=== PATIENT | male | born 1990 | race Caucasian/White ===

== ENCOUNTER → 2020-06-28 11:28 | Outpatient (BNVA) | payer OTHER, SELFPAY | PROVIDERS: Family Provider Emergency Medicine Emergency Medical Services; Visit Provider Nurse Practitioner Family | DX: Z11.59 Encounter for screening for other viral diseases (principal) | CPT/HCPCS: 87635 ==

== ENCOUNTER 2020-07-05 11:26 | Emergency (ER) | payer OTHER, SELFPAY ==
[2020-07-05 11:34] VITALS: BP 128/80; PULSE 82; RESP 14; TEMP 36.8; O2SAT 96; BMI 24.7
--- NOTE | 2020-07-05 11:54 | W.ED.WOUNDLC ---
HPI - Wound/Laceration General: Chief Complaint: Wound/Laceration Stated Complaint: HEAD LACERATION Time Seen by Provider: 07/05/20 11:41 Source: patient Mode of arrival: ambulatory Limitations: no limitations History of Present Illness: HPI narrative: Patient is a 30-year-old male who hit his head against the hinge of a door about 2 hours prior to arrival. He denies loss of consciousness. He is not on any anticoagulation. He has had a few episodes of dizziness since he hit his head. He has a laceration on the crown of his head and he is here to be evaluated. No other injuries Onset (ago): hour(s) (2) Location: scalp Place: work Patient tetanus UTD: No Associated symptoms: Reports other (dizziness); Denies chills, fever(s), foreign body sensation, inability to move, nausea, numbness, pain, syncope or vomiting Review of Systems General: Reports: 10 or more systems reviewed and unremarkable except in HPI and below Const: Denies: fever(s) or chills Eyes: Denies: change in vision or blurry vision ENMT: Denies: throat pain, enlarged tonsils, odynophagia, hoarseness, mouth pain or swelling of lips/tongue Card: Denies: syncope Resp: Denies: dyspnea, productive cough or non-productive cough GI: Denies: nausea or vomiting : Denies: flank pain, dysuria, urinary frequency, urinary urgency or urinary hesitancy Musc: Denies: neck pain, back pain or extremity swelling Skin/Breast: Reports: other (Laceration); Denies: rash, pruritus or erythema Neuro: Denies: headache(s), numbness in extremities or weakness in extremities Endo: Denies: polyuria, polydipsia or tired all the time [facility] ED PFSH: Social History Smoking and tobacco status: current every day smoker Alcohol intake: never Physical Exam Const: COMMON NORMALS: no acute distress, average body habitus, patient oriented x3, no limitations, healthy appearing, alert and well nourished HENMT: COMMON NORMALS: normocephalic and moist oral mucous membranes HEAD & SCALP: normocephalic and laceration (2 cm laceration on the top of his head. No bleeding. No skull depressions felt.) Eye: COMMON NORMALS: Equal, round and reactive pupils present, EOMs intact bilaterally, conjunctivae normal and no scleral icterus CONJUNCTIVA: Yes conjunctivae normal PUPIL: Yes Equal, round and reactive pupils present Neck/C-Spine: COMMON NORMALS: full ROM, supple, no meningeal signs, no JVD and No carotid bruits Resp: COMMON NORMALS: normal respiratory effort, No retractions, No use of accessory muscles, clear to auscultation bilaterally and percussion normal AUSCULTATION: clear to auscultation bilaterally PERCUSSION: percussion normal Cardio: COMMON NORMALS: no JVD, regular rate, regular rhythm, S1 normal heart sound present, S2 normal heart sound present, No gallops present (Cardio), No clicks present (Cardio), No murmurs present (Cardio), No rub (Cardio) and Peripheral pulses 2+ throughout RATE: regular rate RHYTHM: regular rhythm HEART SOUNDS: S1 normal heart sound present and S2 normal heart sound present PERIPHERAL PULSES: Peripheral pulses 2+ throughout GI: COMMON NORMALS: Normal to inspection, nondistended, normoactive bowel sounds present, Soft to palpation, non-tender, No hepatosplenomegaly present, no masses and no bruits PALPATION: Yes Soft to palpation and Yes No hepatosplenomegaly present Extremity: COMMON NORMALS: normal to inspection, full ROM, capillary refill normal, no calf tenderness and no pedal edema Neuro: COMMON NORMALS: patient oriented x3 SENSORIUM/ORIENTATION: Yes alert MENINGEAL SIGNS: Yes no meningeal signs Skin: COMMON NORMALS: no rashes or lesions noted, no wounds, turgor normal, no jaundice, no petechiae and no mottling GENERAL SKIN EXAM: no rashes or lesions noted and turgor normal Procedures Laceration Laceration 1: Site: scalp Size (cm): 2 Description: linear and clean Depth: simple, single layer Local Anesthetic: lidocaine 1% and with epi Amount of anesthesia used (mL): 3 Pre-repair: wound explored Skin layer closed with: other (sami) Number of sutures: 3 (3 sami) Course Reevaluation(s): Reevaluation #1: Discussed his CT scan findings with him. No acute findings, however he has a Chiari I malformation. Advised that he should get an MRI on an outpatient basis. Also discussed wound care with him and he voiced understanding and is in agreement with the plan. Time: 13:06 Vital Signs: Vital signs: Vital Signs Temperature 98.2 F 07/05/20 11:34 Pulse Rate 82 07/05/20 11:34 Respiratory Rate 14 07/05/20 11:34 Blood Pressure 128/80 07/05/20 11:34 Pulse Oximetry 96 07/05/20 11:34 MDM - Wound/Laceration MDM Narrative: Medical decision making narrative: 30-year-old male with a mild closed head injury. He also sustained a scalp laceration was successfully closed using sami. He is discharged home with a few days off of work as I believe he has a concussion. Wound care instructions given to the patient Medical Records: Attestation: I reviewed the patient's medical records. Imaging Data^: CT Head: Attestation: I personally reviewed and interpreted this imaging study as follows: Radiologist's impression: [place] [address] CT Scan Report Signed Patient: Jose Lezama #: [id number] : 1990Acct#:[id number] Age/Sex: Date: [birth year]20 Loc: ERRoom/Bed: Attending Dr: Ordering Provider/Ordering MD: Abena Palmer MD, [facility] Date of Service: 07/05/20 Procedure(s): CT head wo con* [id number] Accession Number(s): [id number] Report Number: [id number] WS: [id number] CT HEAD TECHNIQUE: Noncontrast CT of the head obtained from the skullbase to the vertex. CLINICAL INFORMATION: head injury, dizziness COMPARISON: None. DLP: 854.[address] scans at [facility] use at least one of these dose optimization techniques: automated exposure control; mA and/or kV adjustment per patient size (includes targeted exams where dose is matched to clinical indication); or iterative reconstruction. FINDINGS: No evidence of intracranial hemorrhage or mass effect. Ventricular system and basal cisterns are patent. No extra-axial fluid collections. No evidence of mass or mass effect. Normal walton-white differentiation. Scalp laceration overlying the right frontal vertex. No acute fractures. Small retention cyst in the posterior ethmoid air cells. Mastoid air cells are well aerated. Paranasal sinuses are otherwise well aerated where visualized. Chiari I malformation with crowding at the foramen magnum. Cerebellar tonsils approximately 7-8 mm below the foramen magnum. No hydrocephalus. CT/CT head wo con* [id number] IMPRESSION: 1. No evidence of intracranial hemorrhage or mass effect. 2. Chiari 1 malformation with cerebellar tonsils 7-8 mm below the foramen magnum. Mild crowding at the foramen magnum. No hydrocephalus. This can be followed up with MRI on an elective basis. 3. Scalp laceration overlying the right vertex. No fractures. 4. No other significant findings. Dictated By:Juancho Coffey MD Signed By:Juancho Coffey MDSigned Date/Time:07/05/201250 DD/ 1246 Discharge Plan Discharge Patient Disposition: Home Clinical Impression: Chiari malformation type I Mild closed head injury Qualifiers: Encounter type: initial encounter Qualified Code(s): S09.90XA - Unspecified injury of head, initial encounter Laceration of scalp Qualifiers: Encounter type: initial encounter Qualified Code(s): S01.01XA - Laceration without foreign body of scalp, initial encounter Concussion Qualifiers: Encounter type: initial encounter Loss of consciousness presence/duration: without LOC Qualified Code(s): S06.0X0A - Concussion without loss of consciousness, initial encounter Condition: Stable Discharge Orders: Discharge Order (Routine); Ordered 07/05/20 Ordered By: Abena Palmer Discharge Diet: Usual diet Discharge Activity: Increase activity as tolerated Patient Instructions: Concussion/Head Injury - Adult, Scalp Laceration, Concussion (ED), Minor Head Injury (ED), Chiari Malformation (GEN) Activity Restrictions/Additional Instructions: Return for any new or worsening symptoms. No strenuous activities for the next week. Follow-up with your primary care provider within 3 days. Have the sami removed in 5 to 7 days. Keep the wound clean and dry, he can shower but do not soak the wound. Apply an antibiotic ointment to the wound daily. Need to get an outpatient MRI of your brain to evaluate the Chiari malformation that was found on CT. 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
[2020-07-05] MEDS: tetanus-dipt-pertussis 0.5 mL SDV IM (12:00)
--- NOTE | 2020-07-05 12:11 | CT_ITS ---
WS: [id number] CT HEAD TECHNIQUE: Noncontrast CT of the head obtained from the skullbase to the vertex. CLINICAL INFORMATION: head injury, dizziness COMPARISON: None. DLP: 854.[address] scans at [facility] use at least one of these dose optimization techniques: automat ed exposure control; mA and/or kV adjustment per patient size (includes targeted exams where dose is matched to clinical indication); or iterative reconstruction. FINDINGS: No evidence of intracranial hemorrhage or mass effect. Ventricular system and basal cisterns are connors nt. No extra-axial fluid collections. No evidence of mass or mass effect. Normal walton-white different iation. Scalp laceration overlying the right frontal vertex. No acute fractures. Small retention cyst in the posterior ethmoid air cells. Mastoid air cells are well aerated. Paranasa l sinuses are otherwise well aerated where visualized. Chiari I malformation with crowding at the foramen magnum. Cerebellar tonsils approximately 7-8 mm be low the foramen magnum. No hydrocephalus. CT/CT head wo con* [id number] IMPRESSION: 1. No evidence of intracranial hemorrhage or mass effect. 2. Chiari 1 malformation with cerebellar tonsils 7-8 mm below the foramen magn um. Mild crowding at the foramen magnum. No hydrocephalus. This can be followed up with MRI on an elective basis. 3. Scalp laceration overlying the right vertex. No fractures. 4. No other significant findings.
[2020-07-05 13:20] VITALS: BP 116/55; PULSE 68; RESP 14; O2SAT 100
== END 2020-07-05 13:22 | disposition home or self-care (01) ==
PROVIDERS: Emergency Provider Family Medicine
DX: S01.01XA Laceration without foreign body of scalp, initial encounter (principal); S06.0X0A Concussion without loss of consciousness, initial encounter; G93.5 Compression of brain; F17.210 Nicotine dependence, cigarettes, uncomplicated; W22.09XA Striking against other stationary object, initial encounter; Z23 Encounter for immunization
CPT/HCPCS: 12001; 12345; 70450; 90471; 90715; 99281; 99282

== ENCOUNTER → 2020-07-06 12:48 | Outpatient (BNVA) | payer OTHER, SELFPAY | PROVIDERS: Visit Provider Emergency Medicine | DX: Z11.59 Encounter for screening for other viral diseases (principal) | CPT/HCPCS: 87635 ==

== ENCOUNTER → 2020-07-24 13:20 | Outpatient (BNVA) | payer OTHER, SELFPAY | PROVIDERS: Visit Provider Nurse Practitioner Family | DX: Z11.59 Encounter for screening for other viral diseases (principal); J06.9 Acute upper respiratory infection, unspecified | CPT/HCPCS: 87635 ==

== ENCOUNTER 2020-07-26 09:09 | Outpatient (CLI) | payer OTHER, SELFPAY ==
--- NOTE | 2020-07-26 09:21 | MR_ITS ---
WS: [id number] MRI HEAD WITH CONTRAST TECHNIQUE: Sagittal T1, T2 axial, T2 axial FLAIR, axial susceptibility weighted imaging, axial diffus ion weighted images, and coronal T2 images were obtained. Pre and post-T1 axial and post T1 coronal i mages. ADC and FSPGR images. CLINICAL INFORMATION: CHIARI 1 MALFORMATION COMPARISON: CT July 05, 2020 FINDINGS: No evidence of restricted diffusion to suggest acute ischemia. Ventricular system and basal cisterns are patent. 5 mm focus of hemosiderin in the left frontal lobe laterally likely represents a small ca vernoma. No evidence of recent hemorrhage. No suspicious white matter signal abnormalities. Normal va scular flow voids at the skull base. No extra-axial fluid collections. Mucosal thickening ethmoid air cells. Retention cyst right maxillary sinus. Mastoid air cells are well aerated. Chiari I malformation with cerebellar tonsils 9 mm below the foramen magnum. Normal fourth ventricle. Mild crowding at the foramen magnum. Brain stem signal is normal. Normal fourth ventricle. No hydroc ephalus. No abnormal gadolinium enhancement. Normal optic chiasm and pituitary infundibulum. Normal cavernous sinuses and Meckel's cave. Normal dural venous sinuses. Enhancing bony lesion in the right lateral or bital rim unchanged since the CT measuring 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 T his has a nonaggressive appearance and likely incidental. MR/MR head wo/w con [id number] IMPRESSION: 1. Chiari 1 malformation with cerebellar tonsils 9 mm below the foramen magnum . Normal fourth ventricle. Mild crowding of the foramen magnum. Normal brain st em signal. Normal fourth ventricle. 2. No hydrocephalus. 3. No restricted diffusion to suggest acute ischemia. 4. 5 mm focus of hemosiderin in the left frontal lobe laterally likely represe nts a small cavernoma. No evidence of recent hemorrhage. 5. No suspicious white matter signal abnormalities. 6. No abnormal gadolinium enhancement. 7. Retention cyst right maxillary sinus.
== END 2020-07-26 09:10 | disposition home or self-care (01) ==
LOC: RADSHAW 09:10
PROVIDERS: PCP Emergency Medicine Emergency Medical Services; Visit Provider Emergency Medicine Emergency Medical Services
DX: G93.5 Compression of brain (principal); M27.40 Unspecified cyst of jaw
CPT/HCPCS: 70553; A9579

== ENCOUNTER 2020-10-19 12:35 | Emergency (ER) | payer OTHER, SELFPAY ==
[2020-10-19 12:42] VITALS: BP 133/93; PULSE 94; RESP 18; TEMP 36.7; O2SAT 97; BMI 25.8
--- NOTE | 2020-10-19 12:50 | W.ED.EXTPRO ---
HPI - Extremity Problem General: Chief complaint: Extremity Problem,Nontraumatic Stated complaint: knee to ankle and wrist to hand of left side cold Time Seen by Provider: 10/19/20 12:48 History of Present Illness: HPI Narrative: Patient is a 30-year-old male comes to the ED with left leg pain and left forearm pain. Left arm pain occurs when patient puts his wrist and arm in certain positions. He says the pain starts at the wrist and then radiates up into the elbow. The left leg pain starts in the lower back and then moves down the hip and into the leg. Denies any bladder or bowel incontinence, pelvic anesthesia or weakness to lower extremities. Associated symptoms: Deny chest pain, fever(s) or rash Review of Systems Const: Denies: fever(s), chills or fatigue Eyes: Denies: change in vision or eye discomfort ENMT: Denies: throat pain, odynophagia, nasal discharge or nasal congestion Card: Denies: chest pain, palpitations, edema, swelling of feet/ankles, dyspnea on exertion or orthopnea Resp: Denies: dyspnea, productive cough or non-productive cough GI: Denies: abdominal pain, nausea, vomiting, diarrhea, constipation or hematochezia : Denies: flank pain, difficulty urinating, dysuria or hematuria Musc: Reports: back pain (Lower back) and extremity pain (Left forearm pain, left leg pain); Denies: neck pain or extremity swelling Skin/Breast: Denies: rash or new lesions Neuro: Denies: headache(s), numbness in extremities or weakness in extremities PFS ED PFSH: Social History Smoking and tobacco status: former smoker Quit status (tobacco): has quit using tobacco Alcohol intake: current Alcohol intake frequency: holidays/special occasions only History of recent travel: No Current gender identity: Male Physical Exam Const: COMMON NORMALS: no acute distress, patient oriented x3 and alert GENERAL APPEARANCE: cooperative and comfortable HENMT: COMMON NORMALS: normocephalic HEAD & SCALP: normocephalic MOUTH: Normal oral and palatal mucosa present THROAT: posterior oropharynx normal and uvula midline Eye: COMMON NORMALS: Equal, round and reactive pupils present PUPIL: Yes Equal, round and reactive pupils present Neck/C-Spine: COMMON NORMALS: supple GENERAL: Yes normal visual inspection Resp: COMMON NORMALS: normal respiratory effort, No retractions, No use of accessory muscles and clear to auscultation bilaterally AUSCULTATION: clear to auscultation bilaterally Cardio: COMMON NORMALS: regular rate, regular rhythm, S1 normal heart sound present, S2 normal heart sound present, No gallops present (Cardio), No clicks present (Cardio), No murmurs present (Cardio) and Peripheral pulses 2+ throughout RATE: regular rate RHYTHM: regular rhythm HEART SOUNDS: S1 normal heart sound present and S2 normal heart sound present PERIPHERAL PULSES: Peripheral pulses 2+ throughout GI: COMMON NORMALS: Normal to inspection, nondistended, normoactive bowel sounds present, Soft to palpation, non-tender and no masses PALPATION: Yes Soft to palpation : COMMON NORMALS: Yes no CVA tenderness BLADDER/KIDNEY EXAM: Yes no CVA tenderness Back/Pelvis: COMMON NORMALS: no CVA tenderness LUMBAR SPINE/LOWER BACK: Yes paraspinal muscle tenderness Lumbar paraspinal muscle tenderness: left and Yes other soft tissue findings Other lumbar soft tissue findings laterality: left Left other lumbar soft tissue findings details: tenderness (Left lower back lumbosacral fascia region.) Extremity: COMMON NORMALS: normal to inspection LEFT UPPER EXTREMITY: Yes wrist Left wrist: Yes inspection (Normal, no edema, ecchymosis or erythema seen.) and Yes special tests Left wrist special tests: Phalen's test: Positive Neuro: COMMON NORMALS: patient oriented x3 and moves all extremities SENSORIUM/ORIENTATION: Yes alert Skin: GENERAL SKIN EXAM: dry skin Course Vital Signs: Vital signs: Vital Signs Temperature 98.1 F 10/19/20 12:42 Pulse Rate 94 10/19/20 12:42 Respiratory Rate 18 10/19/20 12:42 Blood Pressure 133/93 10/19/20 12:42 Pulse Oximetry 97 10/19/20 12:42 MDM - Extremity (Nontraumatic) MDM Narrative: Medical decision making narrative: Patient is a 30-year-old male comes to the ED with left forearm pain and lower back pain that radiates down until left leg. Left forearm pain starts at the wrist and moves to the elbow and occurs when his hand and wrist in certain positions. Patient positive in left wrist for Phalen's test. Patient had left lower back paraspinal muscle tenderness. No cauda equina symptoms present. Patient was given a dose of Toradol and Solu-Medrol while here in the ED. He was diagnosed with lumbar radicular pain and carpal tunnel syndrome left wrist. He was discharged with a prescription for Medrol Dosepak. He was told to continue taking his muscle relaxer and Aleve to help with pain. Return to ED precautions given. Follow-up with PCP in 7 to 10 days for reevaluation. Patient understood and agree with plan. Discharge Plan Discharge Patient Disposition: Home Clinical Impression: Lumbar radicular pain, Carpal tunnel syndrome of left wrist Condition: Stable Prescriptions: New Medrol (George) 4 mg tablets,dose pack See Rx Instructions .ROUTE .COMPLEX Qty: 21 RF: 0 No Action cyclobenzaprine 10 mg tablet 10 mg PO TID RF: 0 Discharge Orders: Discharge ED (Routine); Ordered 10/19/20 Ordered By: Edgardo Rush Referrals: Stef Sandhu, [Primary Care Provider] - Discharge Diet: Regular Discharge Activity: Increase activity as tolerated Patient Instructions: Carpal Tunnel Syndrome Exercises (GEN), Carpal Tunnel Syndrome (ED), Lumbar Radiculopathy (ED) Activity Restrictions/Additional Instructions: Follow-up with medical provider as directed in 7 to 10 days for reevaluation. I or apply heat on lower back to help with symptoms. Do daily stretches of lower back. Take medications as prescribed. Attached your discharge paperwork is some carpal tunnel exercises as well to help with symptoms. Return to the ER or your medical provider if condition worsens. Please read and understand discharge instructions. If any questions, please ask. Coding Level of Care Code ED Procurement Professional [employer] for [employer]te Fwd Exam Comprehensive
[2020-10-19] MEDS: ketorolac 60 mg/2 mL INJ IM (13:22)
== END 2020-10-19 13:25 | disposition home or self-care (01) ==
PROVIDERS: Emergency Provider Physician Assistant; PCP Emergency Medicine Emergency Medical Services
DX: M54.16 Radiculopathy, lumbar region (principal); G56.02 Carpal tunnel syndrome, left upper limb; Z87.891 Personal history of nicotine dependence
CPT/HCPCS: 12345; 96372; 99281; 99283; J1885; J2930

== ENCOUNTER 2020-11-19 07:36 | Outpatient (CLI) | payer OTHER, SELFPAY ==
--- NOTE | 2020-11-19 07:40 | MR_ITS ---
WS: [id number] MRI LUMBAR SPINE NONCONTRAST TECHNIQUE: Sagittal T1, T2 and STIR imaging. Axial T1 and T2 imaging. CLINICAL INFORMATION: LUMBAR RADICULOPATHY COMPARISON: MRI 2018 FINDINGS: Mild lumbar curve. No acute compression. Disc bulging worse L4-5 is similar to previous. L1-L2: Normal. L2-L3: Normal. L3-L4: Mild annular bulging L3-4. Slight narrowing of the left subarticular recess. Mild facet arthro radha. Spinal canal and foramen are patent. L4-L5: Shallow left subarticular disc protrusion impinges the traversing left L5 nerve root in the snyder barticular recess. Mild central canal stenosis. This is similar to 2018. Mild left foraminal narrowin g. Mild facet arthropathy. L5-S1: Shallow central and left pericentral disc protrusion with contact of the left S1 nerve root. T his is similar to 2018. Correlation for left S1 nerve root symptoms. Tiny annular fissure at this level. Mild left foraminal narrowing. Mild facet arthropathy. Chiari I malformation with cerebellar tonsils approximately 7 mm below the foramen magnum. MR/MR lumbar spine wo con* [id number] IMPRESSION: 1. Mild lumbar curve. No acute compression. 2. Left subarticular disc protrusion L4-5 impinges the traversing left L5 nerv e root in the left subarticular recess. Mild central canal stenosis. This appea rs unchanged from previous. Mild left L4-5 foraminal narrowing. 3. Shallow central and left pericentral disc protrusion L5-S1 impinges the lef t S1 nerve root in the subarticular recess. This is unchanged from previous. Mi ld left foraminal narrowing. 4. Stable Chiari I malformation with tonsils 7 mm below the foramen magnum.
== END 2020-11-19 07:37 | disposition home or self-care (01) ==
LOC: RADSHAW 07:37
PROVIDERS: PCP Emergency Medicine Emergency Medical Services; Visit Provider Emergency Medicine Emergency Medical Services
DX: M54.16 Radiculopathy, lumbar region (principal); M51.26 Other intervertebral disc displacement, lumbar region; M51.27 Other intervertebral disc displacement, lumbosacral region; G93.5 Compression of brain
CPT/HCPCS: 72148

== ENCOUNTER → 2020-12-04 09:42 | Outpatient (BNVA) | payer OTHER, SELFPAY | PROVIDERS: PCP Emergency Medicine Emergency Medical Services; Visit Provider Specialist | DX: M54.5 Low back pain (principal); R51.9 Headache, unspecified; G93.5 Compression of brain | CPT/HCPCS: 99204 ==

== ENCOUNTER → 2020-12-18 09:16 | Outpatient (BNVA) | payer OTHER, SELFPAY | PROVIDERS: PCP Emergency Medicine Emergency Medical Services; Visit Provider Orthopaedic Surgery | DX: M54.5 Low back pain (principal) | CPT/HCPCS: 72110 ==

== ENCOUNTER → 2021-01-16 08:42 | Outpatient (BNVA) | payer OTHER, SELFPAY | PROVIDERS: PCP Emergency Medicine Emergency Medical Services; Visit Provider Orthopaedic Surgery | DX: Z01.818 Encounter for other preprocedural examination (principal); Z11.52 Encounter for screening for COVID-19 | CPT/HCPCS: 87635 ==

== ENCOUNTER 2021-01-21 09:02 | Day surgery (SDC) | payer OTHER, SELFPAY ==
[2021-01-18 10:24] VITALS: BMI 25.9
--- NOTE | 2021-01-18 10:46 | ANES.PREANE2 ---
Pre-Anesthetic Assessment Pre-Anesthetic Assessment: Height/Weight: Height 1.93 m Weight 96.615 kg Preop Diagnosis: lumbar stenosis Proposed Procedure: Operation Date: 01/21/21 12:30 Proposed Procedures p Lumbar Spine Decompression [id number] M448.062(Not Applicable) - Carlos A Lopez, DO Was Beta Juma taken within 24 hours: N/A Was Clonidine taken within 24 hours: N/A Social: Social History: No alcohol and No tobacco Exam: Pre-Anes Outpt Exam: alert, oriented x 3, clear to auscultation bilaterally and regular rate & rhythm Airway: Submandibular: WNL Cervical ROM: WNL MP: 2 Dentition: Full Musc/skel: Musc/skel: Lower Back Pain Anesthetic Plan: ASA status: 2 Anesthesia: General Risk of > 500 ml blood loss (7ml/kg in children): No PFSH Anesthesia PFSH: Social History Smoking and tobacco status: former smoker Quit status (tobacco): has quit using tobacco Alcohol intake: current Alcohol intake frequency: holidays/special occasions only History of recent travel: No Current gender identity: Male Data Anesthesia Cardiac Studies: No Data to Display
[2021-01-21] VITALS (9 sets, daily range): BP systolic 117–135; BP diastolic 66–89; PULSE 64–90; RESP 12–18; TEMP 36.2–36.7; O2SAT 98–100
--- NOTE | 2021-01-21 | SCC_ITS ---
Procedure Done: 1. Left L4/5 laminectomy, partial facetectomy and diskectomy 2. Left L5/S1 laminectomy partial facetectomy 22 seconds of fluoroscopic guidance, for a cumulative dose of 4.69 mGy, was provided to Dr. Lopez by the radiology department. C-arm images of the lumbar spine were saved for the patient's permanent record. [facility]
[2021-01-21] MEDS: sodium chloride 0.9% 1,000 ML 30 ML IV (09:32)
--- NOTE | 2021-01-21 10:16 | P.ANESUD_ITS ---
Pre-Anesthetic Update Pre-Anesthetic Assessment: Date of Surgery/Procedure: 01/21/21 Preop Taina gnosis: lumbar stenosis Proposed Procedure: Operation Date: 01/21/21 10:35 Proposed Procedures p Lumbar Spine Decompression [id number] M448.062(Not Applicable) - Carlos A Lopez, DO Any changes to Pre-Anesthetic Assessment?: No Last Intake: Intake Last Liquid Date 01/20/21 Last Solid Date 01/20/21 Vitals: Temperature 98.1 F 01/21/21 09:25 Pulse Rate 90 01/21/21 09:25 Respiratory Rate 18 01/21/21 09:25 Blood Pressure 132/82 01/21/21 09:25 Blood Pressure Mica n 98 01/21/21 09:25 Pulse Oximetry 98 01/21/21 09:25 Oxygen Delivery Me thod 01/21/21 09:26 Exam: Pre-Anes Outpt Exam: alert, oriented x 3, clear to auscultation bilaterally and regular rate & rhythm Cardiac Studies: No Data to Display
--- NOTE | 2021-01-21 14:24 | P.HP_ITS ---
Providers/Chief Complaint Primary Care Provider: Stef Sandhu DO Chief Complaint: decompression History of Present Illness Jose Lezama is a 30 year old male his is a new 30 year old male patient here today for evaluation of his lower back pain. Onset: patient states that he was in the [place] and that he had several injuries such as falling off of a mountain, falling out of a humvee. Duration: years Characteristics: dull poking, squeezing Severity: mild Location: lower back Radiating symptoms: into the left leg Aggravating factors: none Alleviating factors: stretching at times Neuro deficits: patient reports numbness, tingling, weakness, Patient denies incontinence of bowel/bladder, saddle anesthesia. Prior tx: back ablasion, physical therapy, injections. Injections helped for a few hours. Associated symptoms: Denies abdominal pain, chills, fever(s), nausea or vomiting Review of Systems Narrative: Const: Denies: fever(s) or chills Card: Denies: chest pain or dyspnea on exertion Resp: Denies: dyspnea, productive cough or wheezing GI: Denies: abdominal pain, nausea or vomiting Musc: Reports: neck pain, joint pain, joint swelling and limited range of motion Skin/Breast: Denies: changes in skin color or dry skin Neuro: Denies: numbness in extremities or weakness in extremities Psych: Denies: anxiety Jon/Lymph: Denies: easy bruising or easy bleeding Medications/Allergies Home Medications Medication Instructions Recorded Confirmed Last Taken Type cyclobenzaprine 10 mg tablet 10 mg PO TID 07/06/20 01/21/21 01/20/21 History naproxen sodium 220 mg PO BID PRN 01/18/21 01/21/21 01/20/21 History Allergies Allergy/AdvReac Type Severity Reaction Status Date / Time No Known Allergies Allergy Verified 01/21/21 09:19 PFSH Acute PFSH: Social History Smoking and tobacco status: former smoker Quit status (tobacco): has quit using tobacco Alcohol intake: current Alcohol intake frequency: holidays/special occasions only History of recent travel: No Current gender identity: Male Vitals/I&O/Wt Last Vital Signs Temp 98.1 F 01/21/21 09:25 Pulse 90 01/21/21 09:25 Resp 18 01/21/21 09:25 BP 132/82 01/21/21 09:25 Pulse Ox 98 01/21/21 09:25 Physical Exam Narrative: EXAM NARRATIVE: CONSTITUTIONAL: The patient is a normal appearing [] in no apparent distress. GENERAL: Patient in no acute distress. CARDIAC: Regular rate and rhythm. CHEST: Normal inspiratory effort, normal respiratory rate. ABDOMEN: Soft and nontender. SKIN: Clear, warm and intact. NEURO?PSYCH: The patient is alert and oriented to person, place and time. Sensorv /SILT Motor StrengthShoulder abduction C5 5/5Wrist extension C6 5/5Elbow extension C7 5/5Hand Condominium Association Manager C8 5/5Finger abduction T15/5 Radial/ Ulnar/ Median n intact LowerSensory (SILT)Motor StrengthHin flexion L2/3Ant/inner thigh 5/5Hip adduction L2/3 5/5Knee extension L4 Lat thigh, 5/5Toe dorsiflexion L5 5/5Ankle dorsiflexion L5/ S38Mprymod flexion S1 5/5 DTRBleeps 2+Triceps 2+Brachioradialis 2+Patellar 2+Achilles 2+ MUSCULOSKELETAL: [] UPPEREXTREMITIES: The patient had full active ROM in fingers, wrist, elbow, and shoulder. The patient demonstrated ability to fully flex/extend/abduct/adduct fingers, make ok sign, cross 2nd/3rd digits, extend 1st digit fully.. Radial pulse 2+, CR<2 seconds. LOWER EXTREMITIES: Pt has full, active ROM of toes, ankle, knee, and hip. Dorsalis pedis/posterior tibialis pulses 2+, CR<2 seconds. SPINE: Skin warm, dry, intact. A&P Assessment and plan (1) Lumbar stenosis with neurogenic claudication: MIS lumbar decompression Status: Acute Attestations Medical Necessity Statement*: failed conservative tx Coding Level of Care Code Acute Air Antisubmarine Officer for [facility] Diagnoses Lumbar stenosis with neurogenic claudication M48.062
--- NOTE | 2021-01-21 16:32 | PM.OP ---
Operative Report Date of procedure: January 21, 2021 Pre-op Diagnosis: lumbar stenosis Post-op diagnosis: same Procedure Done: 1. Left L4/5 laminectomy, partial facetectomy and diskectomy 2. Left L5/S1 laminectomy partial facetectomy Surgeon: Carlos A Lopez Anesthesia: General Estimated blood loss (mL): 5 Condition: stable Disposition: PACU Procedure: 1. Left L4/5 laminectomy, partial facetectomy and diskectomy 2. Left L5/S1 laminectomy partial facetectomy Patient is brought to the operative suite. After undergoing anesthesia they are placed in the supine position. All areas of impingement are well padded. Patient is then prepped and draped in the normal sterile fashion. A skin incision is made over the L4/5 level. This is confirmed under c-arm guidance. A series of dilators are passed and the tubular retractor is docked on the L4 lamina. A bovie is used to clear the soft tissue off the lamina and the L 4/5 facet joint. A high speed emmanuelle is then used to perform the laminectomy and take down the medial aspect of the L 4/5 facet joint. A kerrison rongeure was then used to take down the remaining lamina and smooth the edge of the laminectomy up to the point where the ligamentum flavum attaches. Attention was then brought to the medial aspect of the facet joint. The remaining medial aspect of the superior and inferior aspect of the facet joint were taken down with the kerrison from the pedicle of L4 to L 5. The facet joint had significant hypertrophy. Attention was then brought to the Ligamentum Flavum. The ligament was taken down from the lamina of L4 to L5 and out medially to the remaining facet joint. The ligament was thickened. The dura was then exposed. The dura was in good repair. The L4 nerve was then traced with a curette out the L4/5 foramen and found to be adequately decompressed. The L5 nerve was traced with a curette around the L5 pedicle. The lateral recess was opened with a kerrison helping to further decompress the L5 nerve. The L5 nerve was retracted medially and disk of L4/5 was identified. Disckectomy was done with curved curette and Micro pituitary. Wound is then irrigated copiously with saline and surgiflo is used to stop any bleeding. The tubular retractor is removed A skin incision is made over the L5/S1 level. This is confirmed under c-arm guidance. A series of dilators are passed and the tubular retractor is docked on the L5 lamina. A bovie is used to clear the soft tissue off the lamina and the L 5/T0jieuc joint. A high speed emmanuelle is then used to perform the laminectomy and take down the medial aspect of the L 5/S1 facet joint. A kerrison rongeure was then used to take down the remaining lamina and smooth the edge of the laminectomy up to the point where the ligamentum flavum attaches. Attention was then brought to the medial aspect of the facet joint. The remaining medial aspect of the superior and inferior aspect of the facet joint were taken down with the kerrison from the pedicle of L5 to S1. The facet joint had significant hypertrophy. Attention was then brought to the Ligamentum Flavum. The ligament was taken down from the lamina of L5 to S1 and out medially to the remaining facet joint. The ligament was thickened. The dura was then exposed. The dura was in good repair. The L5 nerve was then traced with a curette out the L5/S1 foramen and found to be adequately decompressed. The S1 nerve was traced with a curette around the S1 pedicle. The lateral recess was opened with a kerrison helping to further decompress the S1 nerve. Wound is then irrigated copiously with saline and surgiflo is used to stop any bleeding. The tubular retractor is removed and the wound is closed with vicryl and monocryl suture. Glue is then used to protect the wound. A sterile dressing is then placed. Patient was then placed in the supine position and transferred to the PACU in stable condition.
--- NOTE | 2021-01-21 16:46 | ANE.PACU2 ---
Inpatient post-anesthesia follow up: Airway intact: Yes Vital signs: Temperature 97.1 F Pulse Rate 66 Respiratory Rate 12 Blood Pressure 125/78 Pulse Oximetry 100 Oxygen Delivery Me thod Simple Mask Oxygen Flow Rate 8 Fraction of Inspir ed Oxygen Hydration adequate: Yes Nausea and vomiting: No Pain level: 3 Mental status: Baseline
--- NOTE | 2021-01-21 16:56 | XR_ITS ---
WS: [id number] C-ARM RADIOGRAPHS LUMBAR SPINE; 2 IMAGES HISTORY: DECOMPRESSION COMPARISON: None available. Intraoperative imaging during spinal decompression. There is a marker indicating the level of L5-S1. XR/XR lumbar spine 1V [id number] IMPRESSION: Intraoperative imaging during spinal decompression.
[2021-01-21] MEDS: oxyCODONE-APAP 5-325 mg Tablet 1 TAB PO (17:51)
== END 2021-01-21 18:25 | disposition home or self-care (01) ==
PROVIDERS: PCP Emergency Medicine Emergency Medical Services; Visit Provider Orthopaedic Surgery
PROC: (CPT 63005; principal; 2021-01-21 10:15)
DX: M48.061 Spinal stenosis, lumbar region without neurogenic claudication (principal); Z87.891 Personal history of nicotine dependence
CPT/HCPCS: 63047; 63048; 72020; 76000; J0690; J2704; J3010; J3490; J7030

== ENCOUNTER 2021-03-08 02:16 | Emergency (ER) | payer OTHER, SELFPAY ==
[2021-03-08 02:29] VITALS: BP 127/82; PULSE 113; RESP 16; TEMP 38.5; O2SAT 96; BMI 26.7
--- NOTE | 2021-03-08 02:38 | CTR_ITS ---
PROCEDURE INFORMATION: Exam: CT Neck With Contrast Exam date and time: 03/08/2021 2:38 AM Age: 31 years old Clinical indication: Dysphagia / difficulty swallowing; Neck pain and throat pain; Patient HX: Left ear pain with radiation down left side of neck. C/O dysphagia with throat pain. TECHNIQUE: Imaging protocol: Computed tomography images of the neck with contrast. Radiation optimization: All CT scans at this facility use at least one of these dose optimization techniques: automated exposure control; mA and/or kV adjustment per patient size (includes targeted exams where dose is matched to clinical indication); or iterative reconstruction. Contrast material: OMNI 300; Contrast volume: 95 ml; Contrast route: INTRAVENOUS (IV); COMPARISON: CT Cervical Spine wo* [id number] 03/24/2018 1:51 PM RADIATION DOSE METRICS: Total DLP (mGy-cm): 540.08 FINDINGS: Limitations: Dental amalgam generates beam hardening artifact decreasing resolution within the oropharynx. Nasopharynx: Unremarkable. Oropharynx: There is some prominence and mild enhancement of the left tonsil, findings that suggest tonsillitis. Hypopharynx: Unremarkable. Larynx: Unremarkable. Normal epiglottis. Retropharyngeal space: Unremarkable. Submandibular/Parotid glands: Normal. Glands are normal in size. Thyroid: Normal. No enlarged or calcified nodules. Lymph nodes: There is a prominent level 1 B lymph nodes seen on the left that measures up to 15 mm transverse dimension. Trachea: Visualized trachea is unremarkable. Lungs: Unremarkable as visualized. Bones/joints: Unremarkable. No acute fracture. Soft tissues: Unremarkable. No significant soft tissue swelling. CT/CT neck w con* [id number] IMPRESSION: 1. There is prominence and mild enhancement of the left tonsillar parenchyma, findings suggesting tonsillitis. 2. Probable reactive lymph nodes seen on the left, the largest at level 1B measuring 15 mm transverse dimension. Radiation Dose CTDIVOL = (mGy): DLP = 540.08 (mGy-cm)
--- NOTE | 2021-03-08 02:43 | ED_ITS ---
HPI - General Adult General: Chief complaint: General Medical Stated complaint: throat swollen and sore Time Seen by Provider: 03/08/21 02:34 Source: patient Mode of arrival: ambulatory Limitations: no limitations History of Present Illness: HPI narrative: 31-year-old male states over the last day has had a fever along with a sore throat. He states his throat pain is severe and rates an 8 out of 10. He states it hurts to swallow and is having difficulty swallowing. Does have a slightly muffled voice. He denies any vomiting or diarrhea. Denies any worsening improving factors. Denies any chest pain. Associated symptoms: Deny chest pain, dyspnea, headache(s), nausea, rash or vomiting Review of Systems Const: Denies: fever(s), chills, body aches or change in appetite Eyes: Denies: blurry vision or eye discomfort ENMT: Reports: throat pain Card: Denies: chest pain Resp: Denies: dyspnea GI: Denies: abdominal pain, nausea, vomiting or diarrhea : Denies: dysuria Musc: Denies: neck pain or back pain Skin/Breast: Denies: rash Neuro: Denies: headache(s) Psych: Denies: depression Jon/Lymph: Denies: easy bruising All/Imm: Denies: urticaria PFSH ED PFSH: Social History Smoking and tobacco status: former smoker Quit status (tobacco): has quit using tobacco Alcohol intake: current Alcohol intake frequency: holidays/special occasions only History of recent travel: No Current gender identity: Male Physical Exam Const: COMMON NORMALS: no acute distress, patient oriented x3 and healthy appearing HENMT: COMMON NORMALS: normocephalic and atraumatic HEAD & SCALP: normocephalic and atraumatic OTHER: Posterior pharynx erythema. No obvious abscess formation or uvular deviation is handling his secretions well. Eye: COMMON NORMALS: Equal, round and reactive pupils present and EOMs intact bilaterally PUPIL: Yes Equal, round and reactive pupils present Neck/C-Spine: COMMON NORMALS: full ROM and supple Chest: COMMONS NORMALS: normal inspection of the chest and normal palpation of entire chest wall Resp: COMMON NORMALS: normal respiratory effort, No retractions, No use of accessory muscles and clear to auscultation bilaterally AUSCULTATION: clear to auscultation bilaterally Cardio: COMMON NORMALS: regular rate, regular rhythm and No murmurs present (Cardio) RATE: regular rate RHYTHM: regular rhythm GI: COMMON NORMALS: Normal to inspection, nondistended, normoactive bowel sounds present, Soft to palpation, non-tender and no masses PALPATION: Yes Soft to palpation Extremity: COMMON NORMALS: normal to inspection and full ROM Neuro: COMMON NORMALS: patient oriented x3, moves all extremities and no focal motor deficits Psych: COMMON NORMALS: mental status grossly normal, Normal thought process present and cooperative THOUGHT PROCESS: Normal thought process present Skin: COMMON NORMALS: no rashes or lesions noted and no wounds GENERAL SKIN EXAM: no rashes or lesions noted Course Vital Signs: Vital signs: Vital Signs Temperature 101.3 F H 03/08/21 02:29 Pulse Rate 113 H 03/08/21 02:29 Respiratory Rate 16 03/08/21 03:35 Blood Pressure 127/82 03/08/21 02:29 Pulse Oximetry 97 03/08/21 03:35 MDM - General Adult MDM Narrative: Medical decision making narrative: Patient presents for sore throat did test positive for strep. CT shows a tonsillitis with no signs of abscess. He feels improved here after steroids. Will place him on penicillin knee is stable for discharge. He is to follow-up with PCP and return if worsening. Lab Data: Labs: Lab Results 03/08/21 03/08/21 03/08/21 Range/Units 03:00 03:00 03:00 WBC 12.9 H (4.0-10.0) 10^3/ uL RBC 4.15 (4.1-5.3) 10^6/u L Hgb 12.4 (11.7-16.6) g/dL Hct 37.0 L (42.0-52.0) % MCV 89.2 (80-94) fL MCH 29.9 (28.0-34.0) pg MCHC 33.5 (30.0-36.0) g/dL RDW 12.2 (12.1-15.1) % Plt Count 296 (130-400) 10^3/c mm MPV 8.8 (7.4-10.4) fL Neut % (Auto) 81.6 % Lymph % (Auto) 8.5 % [place] % (Auto) 8.8 % Eos % (Auto) 0.2 % Baso % (Auto) 0.4 % Neut # (Auto) 10.49 H (1.8-7.7) 10^3/u L Lymph # (Auto) 1.1 (0.8-4.8) 10^3/u L [place] # (Auto) 1.1 H (0.2-0.9) 10^3/u L Eos # (Auto) 0.0 (0.0-0.8) 10^3/u L Baso # (Auto) 0.1 (0.0-0.1) 10^3/u L Nucleated RBC % (a uto) 0 % Nucleated RBCs # 0.0 /100WBC Sodium 135 L (136-145) mmol/L Potassium 3.8 (3.5-5.1) mmol/L Chloride 98 (98-107) mmol/L Carbon Dioxide 25 (22-29) mmol/L Anion Gap 15.8 (5-19) BUN 9 (6-20) mg/dL Creatinine 1.2 (0.7-1.2) mg/dL GFR Calculation 70.2 L (90-130) mL/min Glucose 118 H (65-115) mg/dL Calculated Osmolal ity 280 L (285-295) mOsm/k g Calcium 8.7 (8.5-10.5) mg/dL Monoscreen Negative (Negative) Group A Strep Rapi d (Negative) 03/08/21 Range/Units 03:18 WBC (4.0-10.0) 10^3/ uL RBC (4.1-5.3) 10^6/u L Hgb (11.7-16.6) g/dL Hct (42.0-52.0) % MCV (80-94) fL MCH (28.0-34.0) pg MCHC (30.0-36.0) g/dL RDW (12.1-15.1) % Plt Count (130-400) 10^3/c mm MPV (7.4-10.4) fL Neut % (Auto) % Lymph % (Auto) % [place] % (Auto) % Eos % (Auto) % Baso % (Auto) % Neut # (Auto) (1.8-7.7) 10^3/u L Lymph # (Auto) (0.8-4.8) 10^3/u L [place] # (Auto) (0.2-0.9) 10^3/u L Eos # (Auto) (0.0-0.8) 10^3/u L Baso # (Auto) (0.0-0.1) 10^3/u L Nucleated RBC % (a uto) % Nucleated RBCs # /100WBC Sodium (136-145) mmol/L Potassium (3.5-5.1) mmol/L Chloride (98-107) mmol/L Carbon Dioxide (22-29) mmol/L Anion Gap (5-19) BUN (6-20) mg/dL Creatinine (0.7-1.2) mg/dL GFR Calculation (90-130) mL/min Glucose (65-115) mg/dL Calculated Osmolal ity (285-295) mOsm/k g Calcium (8.5-10.5) mg/dL Monoscreen (Negative) Group A Strep Rapi d Positive H (Negative) Imaging Data^: Other CT: Attestation: I personally reviewed and interpreted this imaging study as follows: Radiologist's impression: [address] [address] [address] Scan Report Signed Patient: Jose Lezama Unit #: [id number] : 1990 Age/Sex: 31 / M ADM Date: 03/08/21 Loc: ER Room/Bed: Attending Dr: Ordering Provider/Ordering MD: Jocelynn England MD Date of Service: 03/08/21 Procedure(s): CT neck w con* [id number] Accession Number(s): [id number] Report Number: [id number] PROCEDURE INFORMATION: Exam: CT Neck With Contrast Exam date and time: 03/08/2021 2:38 AM Age: 31 years old Clinical indication: Dysphagia / difficulty swallowing; Neck pain and throat pain; Patient HX: Left ear pain with radiation down left side of neck. C/O dysphagia with throat pain. TECHNIQUE: Imaging protocol: Computed tomography images of the neck with contrast. Radiation optimization: All CT scans at this facility use at least one of these dose optimization techniques: automated exposure control; mA and/or kV adjustment per patient size (includes targeted exams where dose is matched to clinical indication); or iterative reconstruction. Contrast material: OMNI 300; Contrast volume: 95 ml; Contrast route: INTRAVENOUS (IV); COMPARISON: CT Cervical Spine wo* [id number] 03/24/2018 1:51 PM RADIATION DOSE METRICS: Total DLP (mGy-cm): 540.08 FINDINGS: Limitations: Dental amalgam generates beam hardening artifact decreasing resolution within the oropharynx. Nasopharynx: Unremarkable. Oropharynx: There is some prominence and mild enhancement of the left tonsil, findings that suggest tonsillitis. Hypopharynx: Unremarkable. Larynx: Unremarkable. Normal epiglottis. Retropharyngeal space: Unremarkable. Submandibular/Parotid glands: Normal. Glands are normal in size. Thyroid: Normal. No enlarged or calcified nodules. Lymph nodes: There is a prominent level 1 B lymph nodes seen on the left that measures up to 15 mm transverse dimension. Trachea: Visualized trachea is unremarkable. Lungs: Unremarkable as visualized. Bones/joints: Unremarkable. No acute fracture. Soft tissues: Unremarkable. No significant soft tissue swelling. CT/CT neck w con* [id number] IMPRESSION: 1. There is prominence and mild enhancement of the left tonsillar parenchyma, findings suggesting tonsillitis. 2. Probable reactive lymph nodes seen on the left, the largest at level 1B measuring 15 mm transverse dimension. Discharge Plan Discharge Patient Disposition: Home Clinical Impression: Strep throat Condition: Stable Prescriptions: New penicillin V potassium 500 mg tablet 500 mg PO Q6H 10 Days Qty: 40 RF: 0 No Action cyclobenzaprine 10 mg tablet 10 mg PO TID RF: 0 naproxen sodium 220 mg Capsule 220 mg PO BID PRN (Reason: Pain) RF: 0 Discharge Orders: Discharge ED (Routine); Ordered 03/08/21 Ordered By: Jocelynn England Referrals: Stef Sandhu DO [Primary Care Provider] - Discharge Diet: Advance as tolerated Discharge Activity: Resume usual activity Patient Instructions: Strep Throat (ED) Coding Level of Care Code 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
[2021-03-08] MEDS: iohexol 300 mg/mL 100 mL Btl IV (02:57)
[2021-03-08 03:17] LABS: Basophils # 0.1 10^3/uL (0.0-0.1); Basophils % 0.4 %; Eosinophils % 0.2 %; Hemoglobin 12.4 g/dL (11.7-16.6); Lymphocytes # 1.1 10^3/uL (0.8-4.8); Lymphocytes % 8.5 %; Mean Corpuscular HGB Conc 33.5 g/dL (30.0-36.0); Mean Corpuscular Hemoglobin 29.9 pg (28.0-34.0); Mean Corpuscular Volume 89.2 fL (80-94); Mean Platelet Volume 8.8 fL (7.4-10.4); Monocytes # 1.1 10^3/uL (0.2-0.9); Monocytes % 8.8 %; Neutrophils # 10.49 10^3/uL (1.8-7.7); Neutrophils % 81.6 %; Nucleated Red Blood Cells % 0 %; Platelet Count 296 10^3/cmm (130-400); Red Blood Count 4.15 10^6/uL (4.1-5.3); Red Cell Distribution Width 12.2 % (12.1-15.1); White Blood Count 12.9 10^3/uL (4.0-10.0)
[2021-03-08 03:28] LABS: Monoscreen Negative (Negative)
[2021-03-08] MEDS: acetaminophen 325 mg Tablet 650 MG PO (03:31)
[2021-03-08] MEDS: sodium chloride 0.9% 1,000 ML 999 ML IV (03:31)
[2021-03-08 03:32] LABS: Anion Gap 15.8 (5-19); Blood Urea Nitrogen 9 mg/dL (6-20); Calcium 8.7 mg/dL (8.5-10.5); Carbon Dioxide 25 mmol/L (22-29); Chloride 98 mmol/L (98-107); Glomerular Filtration Rate 70.2 mL/min (90-130); Glucose 118 mg/dL (65-115); Osmolality Calculated 280 mOsm/kg (285-295); Potassium 3.8 mmol/L (3.5-5.1); Sodium 135 mmol/L (136-145)
[2021-03-08 03:35] VITALS: RESP 16; O2SAT 97
[2021-03-08] MEDS: morphine 4 mg/mL SDV 1 mL IVP (03:35)
[2021-03-08] MEDS: ondansetron 2 mg/ML SDV 2 mL 4 MG IVP (03:38)
[2021-03-08] MEDS: ketorolac 30 mg/mL INJ IVP (03:40)
[2021-03-08] MEDS: dexamethasone 4 mg/mL INJ 10 MG IVP (03:46)
[2021-03-08] MEDS: clindamycin 900 MG/50 ML PREMIX 100 MG IV (03:59)
[2021-03-08 04:13] LABS: Rapid Strep A Test Positive (Negative)
[2021-03-08 04:55] VITALS: BP 124/66; PULSE 102; RESP 16; O2SAT 96
== END 2021-03-08 04:57 | disposition home or self-care (01) ==
PROVIDERS: Emergency Provider Emergency Medicine; PCP Emergency Medicine Emergency Medical Services
DX: J02.0 Streptococcal pharyngitis (principal); Z87.891 Personal history of nicotine dependence
CPT/HCPCS: 70491; 80048; 85025; 86308; 87880; 96365; 96375; 99284; J1100; J1885; J2270; J2405; J3490; J7030; Q9967

== ENCOUNTER → 2021-04-03 08:45 | Outpatient (BNVA) | payer OTHER, SELFPAY | PROVIDERS: PCP Emergency Medicine Emergency Medical Services; Visit Provider Specialist | DX: G43.019 Migraine without aura, intractable, without status migrainosus (principal); Z71.89 Other specified counseling; Z87.891 Personal history of nicotine dependence | CPT/HCPCS: 99213 ==

== ENCOUNTER 2021-04-24 06:00 | Outpatient (RCR) | payer OTHER, SELFPAY | END 2021-05-14 23:59 | disposition home or self-care (01) | LOC: SPT 06:00 | PROVIDERS: PCP Emergency Medicine Emergency Medical Services; Referring Provider Orthopaedic Surgery; Visit Provider Orthopaedic Surgery | DX: M48.061 Spinal stenosis, lumbar region without neurogenic claudication (principal) | CPT/HCPCS: 97032; 97110; 97162 ==

== ENCOUNTER 2021-05-15 06:00 | Outpatient (RCR) | payer OTHER, SELFPAY | END 2021-06-13 23:59 | disposition home or self-care (01) | LOC: SPT 06:00 | PROVIDERS: PCP Emergency Medicine Emergency Medical Services; Referring Provider Orthopaedic Surgery; Visit Provider Orthopaedic Surgery | DX: M48.061 Spinal stenosis, lumbar region without neurogenic claudication (principal) | CPT/HCPCS: 97110 ==

== ENCOUNTER → 2021-09-23 10:32 | Outpatient (BNVA) | payer OTHER, SELFPAY | PROVIDERS: PCP Emergency Medicine Emergency Medical Services; Visit Provider Specialist | DX: G43.019 Migraine without aura, intractable, without status migrainosus (principal) | CPT/HCPCS: 99213 ==

== ENCOUNTER 2021-12-26 19:21 | Emergency (ER) | payer OTHER, SELFPAY ==
[2021-12-26 19:36] VITALS: BP 136/72; PULSE 108; RESP 13; TEMP 36.8; O2SAT 100; BMI 27.3
--- NOTE | 2021-12-26 19:51 | ED_ITS ---
HPI - Abdominal Pain General: Chief Complaint: Abdominal Pain Stated Complaint: ABD Pain\[place] Pop\Bluging Stomach Time Seen by Provider: 12/26/21 19:50 History of Present Illness: 31-year-old male patient comes in today with right upper quadrant abdominal pain. Patient reports he was doing stretches and felt a pull and tightness along with a bulge in his right upper abdomen. Patient was concerned for hernia. Patient appears nontoxic. Patient appears in mild to no pain. Associated Symptoms: Denies fever(s) Review of Systems General: Reports: 10 or more systems reviewed and unremarkable except in HPI and below Const: Denies: fever(s) Card: Denies: chest pain Resp: Denies: dyspnea GI: Reports: abdominal pain Musc: Reports: extremity pain PFSH ED PFSH: Social History Quit status (tobacco): has quit using tobacco Alcohol intake: current Alcohol intake frequency: holidays/special occasions only History of recent travel: No Current gender identity: Male Physical Exam Const: COMMON NORMALS: alert Neck/C-Spine: COMMON NORMALS: full ROM Resp: COMMON NORMALS: normal respiratory effort and clear to auscultation bilaterally AUSCULTATION: clear to auscultation bilaterally Cardio: COMMON NORMALS: regular rate and regular rhythm RATE: regular rate RHYTHM: regular rhythm GI: COMMON NORMALS: Soft to palpation AUSCULTATION: Yes normoactive bowel sounds PALPATION: Yes Soft to palpation and No Tenderness to palpation present (GI) Extremity: COMMON NORMALS: normal to inspection Neuro: SENSORIUM/ORIENTATION: Yes alert Psych: COMMON NORMALS: cooperative Skin: COMMON NORMALS: no rashes or lesions noted GENERAL SKIN EXAM: no rashes or lesions noted Course Vital Signs: Vital signs: Vital Signs Temperature 98.2 F 12/26/21 19:36 Pulse Rate 80 12/26/21 20:51 Respiratory Rate 16 12/26/21 20:51 Blood Pressure 184/92 12/26/21 20:51 Pulse Oximetry 100 12/26/21 19:36 MDM - Abdominal Pain Medical Decision Making 31-year-old male patient comes in today with concerns of a bulge to the right upper abdominal wall. Patient reports he does not feel the area as he did prior to arrival to the ER. Patient also describes some what sounds like abdominal diastases. No palpable hernia was noted. Patient bear down without any feeling of bulging or hernia. Vital signs were normal. Patient was afebrile. Differential diagnosis includes but not limited to muscle strain, abdominal wall hernia, worried well. Reviewed exam with patient with recommendations for treatment and follow-up. Patient also reported some discomfort going up into his right shoulder. And patient's female significant other also noted that patient has some dyspepsia and some gas. I recommend patient follow-up with primary care for further evaluation may be rate gallbladder disease or other illnesses. No sign of significant illness or injury was noted or of surgical abdomen was noted at this time. I reviewed recommendations for follow-up regarding fever, uncontrolled pain, or blood in vomit or stool. Patient reported understanding. Discharge Plan Discharge Patient Disposition: Home Clinical Impression: Abdominal muscle strain Qualifiers: Encounter type: initial encounter Qualified Code(s): S39.011A - Strain of muscle, fascia and tendon of abdomen, initial encounter Condition: Stable Prescriptions: No Action sumatriptan succinate [Imitrex] 100 mg tablet See Rx Instructions PO .COMPLEX Qty: 9 3RF Rx Instructions: take 1 tab at onset of headache; if no relief, may repeat 1 tab after at least 2 hrs; max = 2 tabs/24 hrs PO hydrocodone-acetaminophen 7.5-325 mg tablet 1 tab PO BID PRN0RF cyclobenzaprine 10 mg tablet 10 mg PO TID 0RF naproxen sodium 220 mg Capsule 220 mg PO BID PRN (Reason: Pain) 0RF Discharge Orders: Discharge ED (Routine); Ordered 12/26/21 Ordered By: Bruno Lang Referrals: Stef Sandhu DO [Primary Care Provider] - Discharge Diet: Usual diet Discharge Activity: Increase activity as tolerated Activity Restrictions/Additional Instructions: Home and rest. Light activity. Use ice to the area of pain for comfort. Drink plenty of water. Use acetaminophen along with naproxen and cyclobenzaprine for pain. Follow-up with primary care for further instructions and evaluation. Return to ER for high fever greater than 100.4, blood in vomit or stool, or new concerns. 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
[2021-12-26 20:44] VITALS: BP 148/92; PULSE 80; RESP 16
[2021-12-26 20:51] VITALS: BP 184/92; PULSE 80; RESP 16
== END 2021-12-26 20:55 | disposition home or self-care (01) ==
PROVIDERS: Emergency Provider Nurse Practitioner Family; PCP Emergency Medicine Emergency Medical Services
DX: S39.011A Strain of muscle, fascia and tendon of abdomen, initial encounter (principal); X58.XXXA Exposure to other specified factors, initial encounter; Z87.891 Personal history of nicotine dependence; Z79.891 Long term (current) use of opiate analgesic
CPT/HCPCS: 99283

== ENCOUNTER → 2022-02-24 09:17 | Outpatient (BNVA) | payer OTHER, SELFPAY | PROVIDERS: PCP Emergency Medicine Emergency Medical Services; Visit Provider Specialist | DX: G44.209 Tension-type headache, unspecified, not intractable (principal); G43.019 Migraine without aura, intractable, without status migrainosus | CPT/HCPCS: 99213; 99214 ==

== ENCOUNTER 2022-04-30 12:12 | Emergency (ER) | payer OTHER, SELFPAY ==
[2022-04-30 12:15] VITALS: BP 117/80; PULSE 96; RESP 18; TEMP 36.7; O2SAT 96; BMI 27.3
--- NOTE | 2022-04-30 12:26 | XRR_ITS ---
PROCEDURE INFORMATION: Exam: XR Chest Exam date and time: 04/30/2022 12:34 PM Age: 32 years old Clinical indication: Cough and dyspnea and fever; Patient HX: History--chills, fever, feels out of it; Additional info: Dyspnea/cough TECHNIQUE: Imaging protocol: Radiologic exam of the chest. Views: 1 view. COMPARISON: CT neck w con* [id number] 03/08/2021 2:54 AM FINDINGS: Lungs: Unremarkable. No consolidation. Pleural spaces: Unremarkable. No pleural effusion. No pneumothorax. Heart/Mediastinum: Unremarkable. No cardiomegaly. Bones/joints: Unremarkable. XR/XR chest 1V portable [id number] IMPRESSION: No acute findings.
[2022-04-30 12:52] VITALS: BP 126/81; PULSE 82; O2SAT 97
[2022-04-30] MEDS: ketorolac 30 mg/mL INJ IVP (13:15)
[2022-04-30] MEDS: promethazine 25 mg/mL SDV 1 mL IM (13:15)
[2022-04-30 13:18] LABS: Basophils % 0.5 %; Eosinophils # 0.1 10^3/uL (0.0-0.8); Eosinophils % 1.3 %; Hematocrit 40.5 % (42.0-52.0); Hemoglobin 13.4 g/dL (11.7-16.6); Lymphocytes # 1.8 10^3/uL (0.8-4.8); Lymphocytes % 29.7 %; Mean Corpuscular HGB Conc 33.1 g/dL (30.0-36.0); Mean Corpuscular Hemoglobin 29.1 pg (28.0-34.0); Mean Platelet Volume 8.9 fL (7.4-10.4); Monocytes # 0.4 10^3/uL (0.2-0.9); Monocytes % 6.9 %; Neutrophils # 3.63 10^3/uL (1.8-7.7); Neutrophils % 61.3 %; Nucleated Red Blood Cells % 0 %; Platelet Count 305 10^3/cmm (130-400); Red Cell Distribution Width 11.9 % (12.1-15.1); White Blood Count 5.9 10^3/uL (4.0-10.0)
--- NOTE | 2022-04-30 13:18 | ED_ITS ---
HPI - Headache General: Chief Complaint: Headache Stated Complaint: chills,fever, feels out of it Time Seen by Provider: 04/30/22 12:25 Source: patient Mode of arrival: ambulatory History of Present Illness: 32-year-old male who presents emergency room complaining of chills fever headache generalized weakness myalgias no vomiting no diarrhea. Has had a slight nonproductive cough. He had previously been screened for vitamin D and it was low at his primary care office he was concerned that may be related to this. No other family members have been ill recently. He denies any chest pain. Locates the headache to the left he mispheric area but does cross over to the right at times does not significantly change any vision speech or swallowing. MD elicited complaint: headache Onset (ago): hour(s) Onset description: gradually Location: left Severity: moderate Quality & Timing: aching Exacerbating factors: none Relieving factors: nothing Associated symptoms: Reports malaise; Deny chest pain, confusion, cough, diaphoresis, eye pain, eye redness, fever(s), lightheadedness, loss of vision, nausea, neck stiffness, paresthesias, photophobia, pre-syncope, rash, seizures, short of breath, sound sensitivity, syncope, vomiting or weakness Treatments prior to arrival: none Review of Systems Const: Reports: fatigue and malaise; Denies: fever(s), chills or diaphoresis ENMT: Denies: throat pain, ear or mastoid pain, nasal discharge or nasal congestion Card: Denies: chest pain, lightheadedness, syncope or pre-syncope Resp: Denies: dyspnea, productive cough or non-productive cough GI: Denies: abdominal pain, nausea or vomiting : Denies: flank pain, dysuria, urinary frequency or urinary urgency Musc: Denies: neck pain or back pain Skin/Breast: Denies: rash or pruritus Neuro: Reports: headache(s); Denies: numbness in extremities, weakness in extremities, lack of coordination, difficulty walking, dizziness, vertigo or confusion PFSH ED PFSH: Social History Smoking and tobacco status: former smoker Quit status (tobacco): has quit using tobacco Alcohol intake: current Alcohol intake frequency: holidays/special occasions only History of recent travel: No Current gender identity: Male Physical Exam Const: GENERAL APPEARANCE: cooperative and comfortable ORIENTATION/ CONSCIOUSNESS: Yes awake, Yes oriented to person, Yes oriented to place and Yes oriented to time HENMT: COMMON NORMALS: normocephalic, atraumatic and hearing grossly normal bilaterally HEAD & SCALP: normocephalic and atraumatic Eye: COMMON NORMALS: Equal, round and reactive pupils present, EOMs intact bilaterally, conjunctivae normal and no scleral icterus CONJUNCTIVA: Yes conjunctivae normal PUPIL: Yes Equal, round and reactive pupils present DIRECT OPHTHALMOSCOPY: No photophobia Neck/C-Spine: COMMON NORMALS: full ROM, no lymphadenopathy, supple and no JVD OTHER: No nuchal rigidity Lymph: LYMPHATIC: no lymphadenopathy noted and no lymphedema noted Resp: COMMON NORMALS: normal respiratory effort, No retractions, No use of accessory muscles and clear to auscultation bilaterally AUSCULTATION: clear to auscultation bilaterally Cardio: COMMON NORMALS: no JVD, regular rate, regular rhythm and No murmurs present (Cardio) RATE: regular rate RHYTHM: regular rhythm GI: COMMON NORMALS: Soft to palpation and No hepatosplenomegaly present AUSCULTATION: Yes normoactive bowel sounds PALPATION: Yes Soft to palpation, No Tenderness to palpation present (GI), No Guarding due to palpation present (GI) and Yes No hepatosplenomegaly present Extremity: COMMON NORMALS: normal to inspection, capillary refill normal, no clubbing, cyanosis or edema, no calf tenderness and no pedal edema Neuro: SENSORIUM/ORIENTATION: Yes oriented to person, Yes oriented to place and Yes oriented to time OTHER: No focal neurologic deficits noted altered and rapid alternating movements n ormal no ataxia no speech slurring or difficulty Skin: COMMON NORMALS: no rashes or lesions noted GENERAL SKIN EXAM: no rashes or lesions noted Course Vital Signs: Vital signs: Vital Signs Temperature 98.1 F 04/30/22 12:15 Pulse Rate 87 04/30/22 14:15 Respiratory Rate 18 04/30/22 12:15 Blood Pressure 126/81 04/30/22 14:15 Pulse Oximetry 99 04/30/22 14:15 Oxygen Delivery Me thod 04/30/22 12:52 [facility] - Headache Medical Decision Making Headache improved. Reviewing his old records he has a history of a Chiari malformation and migraines. He sees Dr. Álvarez for this. His headache is improved with medicines given. At this point I think we can discharge him home there are several things he mentioned that make me suspicious he may have COVID we will screen him for COVID contact with results when those are completed. If headaches persist follow-up with Dr. Álvarez. Medical Records I reviewed the patient's medical records. Lab Data I reviewed the patient's lab results. : 04/30/22 13:10 04/30/22 13:10 Radiology Impressions Chest X-Ray 04/30/22 12:26 IMPRESSION: No acute findings. Laboratory Results WBC 5.9 10^3/uL (4.0-10.0) 04/30/22 13:10 RBC 4.60 10^6/uL (4.1-5.3) 04/30/22 13:10 Hgb 13.4 g/dL (11.7-16.6) 04/30/22 13:10 Hct 40.5 % (42.0-52.0) L 04/30/22 13:10 MCV 88.0 fl (80-94) 04/30/22 13:10 MCH 29.1 pg (28.0-34.0) 04/30/22 13:10 MCHC 33.1 g/dL (30.0-36.0) 04/30/22 13:10 RDW 11.9 % (12.1-15.1) L 04/30/22 13:10 Plt Count 305 10^3/cmm (130-400) 04/30/22 13:10 MPV 8.9 fL (7.4-10.4) 04/30/22 13:10 Neut % (Auto) 61.3 % 04/30/22 13:10 Lymph % (Auto) 29.7 % 04/30/22 13:10 [place] % (Auto) 6.9 % 04/30/22 13:10 Eos % (Auto) 1.3 % 04/30/22 13:10 Baso % (Auto) 0.5 % 04/30/22 13:10 Neut # (Auto) 3.63 10^3/uL (1.8-7.7) 04/30/22 13:10 Lymph # (Auto) 1.8 10^3/uL (0.8-4.8) 04/30/22 13:10 [place] # (Auto) 0.4 10^3/uL (0.2-0.9) 04/30/22 13:10 Eos # (Auto) 0.1 10^3/uL (0.0-0.8) 04/30/22 13:10 Baso # (Auto) 0.0 10^3/uL (0.0-0.1) 04/30/22 13:10 Nucleated RBC % (auto) 0 % 04/30/22 13:10 Nucleated RBCs # 0.0 /100WBC 04/30/22 13:10 Sodium 142 mmol/L (136-145) 04/30/22 13:10 Potassium 3.5 mmol/L (3.5-5.1) 04/30/22 13:10 Chloride 107 mmol/L (98-107) 04/30/22 13:10 Carbon Dioxide 26 mmol/L (22-29) 04/30/22 13:10 Anion Gap 12.5 (5-19) 04/30/22 13:10 BUN 10 mg/dL (6-20) 04/30/22 13:10 Creatinine 1.0 mg/dL (0.7-1.2) 04/30/22 13:10 GFR Calculation 86.1 mL/min (90-130) L 04/30/22 13:10 Glucose 81 mg/dL (65-115) 04/30/22 13:10 Calculated Osmolality 292 mOsm/kg (285-295) 04/30/22 13:10 Calcium 8.2 mg/dL (8.5-10.5) L 04/30/22 13:10 Total Bilirubin 0.3 mg/dL (0.15-1.2) 04/30/22 13:10 AST 16 U/L (0-40) 04/30/22 13:10 ALT 20 U/L (0-41) 04/30/22 13:10 Alkaline Phosphatase 93 U/L (40-130) 04/30/22 13:10 Total Protein 6.2 g/dL (6.6-8.7) L 04/30/22 13:10 Albumin 4.1 g/dL (3.5-5.2) 04/30/22 13:10 Globulin 2.1 g/dL (1.3-4.6) 04/30/22 13:10 Discharge Plan Discharge Patient Disposition: Home Clinical Impression: Chiari malformation, Common migraine with intractable migraine, Suspected 2019-nCoV infection Condition: Stable Prescriptions: No Action cyclobenzaprine 10 mg tablet 10 mg PO TID PRN (Reason: Pain) naproxen sodium 220 mg Capsule 220 mg PO BID PRN (Reason: Pain) ferrous sulfate 27 mg iron Tablet 27 mg PO DAILY Fish Oil 1,200 (144-216) mg Capsule 1 cap PO DAILY Discharge Orders: Discharge ED (Routine); Ordered 04/30/22 Ordered By: Morgan Kelly Referrals: Stef Sandhu, DO [Primary Care Provider] - Discharge Diet: Usual diet Discharge Activity: Increase activity as tolerated Patient Instructions: COVID-19 (Coronavirus Disease 2019) (ED), Opioid Safety Coding Level of Care Code ED Patient Safety Attendant for Mayte Fwd Exam Comprehensive
[2022-04-30 13:40] LABS: Alanine Aminotransferase 20 U/L (0-41); Albumin Level 4.1 g/dL (3.5-5.2); Alkaline Phosphatase 93 U/L (40-130); Anion Gap 12.5 (5-19); Aspartate Amino Transferase 16 U/L (0-40); Blood Urea Nitrogen 10 mg/dL (6-20); Calcium 8.2 mg/dL (8.5-10.5); Carbon Dioxide 26 mmol/L (22-29); Chloride 107 mmol/L (98-107); Globulin 2.1 g/dL (1.3-4.6); Glomerular Filtration Rate 86.1 mL/min (90-130); Glucose 81 mg/dL (65-115); Osmolality Calculated 292 mOsm/kg (285-295); Potassium 3.5 mmol/L (3.5-5.1); Sodium 142 mmol/L (136-145); Total Bilirubin 0.3 mg/dL (0.15-1.2); Total Protein 6.2 g/dL (6.6-8.7)
[2022-04-30 14:15] VITALS: BP 126/81; PULSE 87; O2SAT 99
[2022-04-30 15:35] LABS: Adenovirus Not Detected (NOT DETECT); Chlamydia Pneumoniae Not Detected (NOT DETECT); Coronavirus 229E,HKU1,NL63,OC4 Not Detected (NOT DETECT); Human Metapneumovirus Not Detected (NOT DETECT); Human Rhinovirus/Enterovirus Not Detected (NOT DETECT); Influenza A Not Detected (NOT DETECT); Influenza A H1 Not Detected (NOT DETECT); Influenza A H1-2009 Not Detected (NOT DETECT); Influenza A H3 Not Detected (NOT DETECT); Influenza B Not Detected (NOT DETECT); Mycoplasma Pneumoniae Not Detected (NOT DETECT); Parainfluenza Virus Type 1 Not Detected (NOT DETECT); Parainfluenza Virus Type 2 Not Detected (NOT DETECT); Parainfluenza Virus Type 3 Not Detected (NOT DETECT); Parainfluenza Virus Type 4 Not Detected (NOT DETECT); Respiratory Syncytial Virus A Not Detected (NOT DETECT); Respiratory Syncytial Virus B Detected (NOT DETECT); SARS-COV-2 Not Detected (NOT DETECT)
[2022-04-30 15:59] LABS: Respiratory Syncytial Virus A Not Detected (NOT DETECT); Respiratory Syncytial Virus B Detected (NOT DETECT); Results from Genmark
== END 2022-04-30 14:06 | disposition home or self-care (01) ==
PROVIDERS: Emergency Provider Family Medicine; PCP Emergency Medicine Emergency Medical Services
DX: G93.5 Compression of brain (principal); G43.019 Migraine without aura, intractable, without status migrainosus; Z20.822 Contact with and (suspected) exposure to COVID-19; Z87.891 Personal history of nicotine dependence
CPT/HCPCS: 71045; 80053; 85025; 87635; 87801; 96372; 96374; 99284; J1885; J2550

== ENCOUNTER → 2022-06-30 09:31 | Outpatient (BNVA) | payer OTHER, SELFPAY | PROVIDERS: PCP Emergency Medicine Emergency Medical Services; Visit Provider Specialist | DX: G43.019 Migraine without aura, intractable, without status migrainosus (principal); M79.2 Neuralgia and neuritis, unspecified; G93.5 Compression of brain; Z87.828 Personal history of other (healed) physical injury and trauma; Z91.82 Personal history of military deployment | CPT/HCPCS: 99213; 99214 ==

== ENCOUNTER 2022-10-06 02:50 | Emergency (ER) | payer OTHER, SELFPAY ==
[2022-10-06 02:57] VITALS: BMI 27.7
[2022-10-06 02:58] VITALS: BP 134/83; PULSE 92; RESP 16; TEMP 36.4; O2SAT 97
[2022-10-06 03:42] LABS: Basophils # 0.1 10^3/uL (0.0-0.1); Basophils % 0.6 %; Eosinophils # 0.1 10^3/uL (0.0-0.8); Eosinophils % 1.5 %; Hematocrit 47.4 % (42.0-52.0); Hemoglobin 16.1 g/dL (11.7-16.6); Lymphocytes # 2.3 10^3/uL (0.8-4.8); Lymphocytes % 28.9 %; Mean Corpuscular Hemoglobin 29.9 pg (28.0-34.0); Mean Corpuscular Volume 87.9 fl (80-94); Monocytes # 0.5 10^3/uL (0.2-0.9); Monocytes % 5.8 %; Neutrophils # 4.91 10^3/uL (1.8-7.7); Neutrophils % 62.8 %; Nucleated Red Blood Cells % 0 %; Platelet Count 357 10^3/cmm (130-400); Red Blood Count 5.39 10^6/uL (4.1-5.3); Red Cell Distribution Width 12.1 % (12.1-15.1); White Blood Count 7.8 10^3/uL (4.0-10.0)
[2022-10-06] MEDS: sodium chloride 0.9% 1,000 ML 999 ML IV (03:44)
[2022-10-06] MEDS: ondansetron 2 mg/ML SDV 2 mL 4 MG IVP ×2 (03:44→05:05)
[2022-10-06 03:45] LABS: Add Urine Microscopic? YES; Bilirubin Urine Neg (Negative); Blood Urine Neg (Negative); Glucose Urine UA Norm (Normal); Ketones Urine 1+ (Negative); Leukocyte Esterase Urine 1+ (Negative); Nitrate Urine Negative (Negative); Protein Urine Neg (Negative); Specific Gravity, Urine 1.025 (1.005-1.030); Urine Appearance Clear (CLEAR); Urine Color Yellow (Yellow); Urobilinogen Urine Neg (Negative); pH Urine 5 (5-7)
[2022-10-06 03:46] VITALS: RESP 18
[2022-10-06] MEDS: morphine 4 mg/mL SDV 1 mL IVP (03:46)
[2022-10-06 03:59] LABS: Add Urine Culture? No; Bacteria Urine TRACE /hpf; Mucus Urine TRACE /hpf; RBC Urine 0-4 /hpf (0-2); Squamous Epithelial Cell Urine 0-4 /hpf (0-5); WBC Urine 0-4 /hpf (0-5)
[2022-10-06 04:02] LABS: Alanine Aminotransferase 22 U/L (0-41); Albumin Level 4.8 g/dL (3.5-5.2); Alkaline Phosphatase 113 U/L (40-130); Aspartate Amino Transferase 18 U/L (0-40); Blood Urea Nitrogen 15 mg/dL (6-20); Calcium 9.2 mg/dL (8.5-10.5); Carbon Dioxide 28 mmol/L (22-29); Chloride 99 mmol/L (98-107); Globulin 2.8 g/dL (1.3-4.6); Glomerular Filtration Rate 86.1 mL/min (90-130); Glucose 98 mg/dL (65-115); Lipase 52 U/L (13-60); Osmolality Calculated 287 mOsm/kg (285-295); Sodium 138 mmol/L (136-145); Total Bilirubin 0.3 mg/dL (0.15-1.2); Total Protein 7.6 g/dL (6.6-8.7)
[2022-10-06] MEDS: ketorolac 30 mg/mL INJ IVP (05:05)
[2022-10-06 06:01] VITALS: BP 128/85; PULSE 82; RESP 16; O2SAT 98
--- NOTE | 2022-10-06 22:04 | W.ED.ABDPA2 ---
HPI - Abdominal Pain General: Chief Complaint: Abdominal Pain Stated Complaint: ABD Pain Time Seen by Provider: 10/06/22 04:27 Source: patient History of Present Illness: 32 year old male complaining of abdominal pain. It is somewhat improved now. He has vomited twice. No fever. MD elicited complaint: abdominal pain Onset (ago): hour(s) Location: Epigastric and LLQ Severity: moderate Quality: aching Radiation: LLQ and epigastric Exacerbating factors: nothing Relieving factors: nothing Associated Symptoms: Reports vomiting; Denies bloating, constipation, diarrhea, dysuria and fever(s) Review of Systems Const: Denies: fever(s) ENMT: Denies: throat pain Card: Denies: chest pain Resp: Denies: dyspnea, productive cough or non-productive cough GI: Reports: vomiting; Denies: diarrhea, constipation or bloating : Denies: dysuria Skin/Breast: Denies: rash PFSH ED PFSH: Social History Smoking and tobacco status: never smoked Quit status (tobacco): has quit using tobacco Alcohol intake: current Alcohol intake frequency: holidays/special occasions only History of recent travel: No Current gender identity: Male Physical Exam Const: COMMON NORMALS: no acute distress GENERAL APPEARANCE: cooperative; not ill appearing and not frail appearing HENMT: COMMON NORMALS: normocephalic, atraumatic and Normal external nose present HEAD & SCALP: normocephalic and atraumatic FACE & SINUS: normal facial exam and face symmetric NOSE: Normal external nose present Eye: COMMON NORMALS: Equal, round and reactive pupils present and EOMs intact bilaterally PUPIL: Yes Equal, round and reactive pupils present Neck/C-Spine: GENERAL: Yes trachea midline Chest: CHEST: Yes Symmetrical chest wall rise Resp: COMMON NORMALS: normal respiratory effort, No retractions, No use of accessory muscles and clear to auscultation bilaterally AUSCULTATION: clear to auscultation bilaterally Cardio: COMMON NORMALS: regular rate and regular rhythm RATE: regular rate RHYTHM: regular rhythm GI: COMMON NORMALS: Normal to inspection, nondistended, normoactive bowel sounds present Extremity: COMMON NORMALS: no pedal edema Neuro: BERENICE COMA SCALE: document GCS findings Berenice coma scale eye opening: Spontaneous Hooper coma scale verbal response: Orientated Berenice coma scale motor response: Obey commands Hooper coma scale total score: 15 SENSORY EXAM: Yes extremities (intact) Psych: COMMON NORMALS: speech normal SPEECH: Yes normal speech Skin: COMMON NORMALS: no rashes or lesions noted GENERAL SKIN EXAM: no rashes or lesions noted Course Vital Signs: Vital signs: Vital Signs Temperature 97.6 F 10/06/22 02:58 Pulse Rate 82 10/06/22 06:01 Respiratory Rate 16 10/06/22 06:01 Blood Pressure 128/85 10/06/22 06:01 Pulse Oximetry 98 10/06/22 06:01 Oxygen Delivery Me thod 10/06/22 02:58 MDM - Abdominal Pain Medical Decision Making This patient does not have any reproducible tenderness. His belly is soft. He is afebrile. White blood cell count is 7.8. Your analysis it's essentially equivocal. His CRP is three. This pain is improved. So is this nausea. He'll be allowed to discharge. You know to return for worsening symptoms. Lab Data 10/06/22 03:25 10/06/22 03:25 Labs/Radiology: Laboratory Results WBC 7.8 10^3/uL (4.0-10.0) 10/06/22 03:25 RBC 5.39 10^6/uL (4.1-5.3) H 10/06/22 03:25 Hgb 16.1 g/dL (11.7-16.6) 10/06/22 03:25 Hct 47.4 % (42.0-52.0) 10/06/22 03:25 MCV 87.9 fl (80-94) 10/06/22 03:25 MCH 29.9 pg (28.0-34.0) 10/06/22 03:25 MCHC 34.0 g/dL (30.0-36.0) 10/06/22 03:25 RDW 12.1 % (12.1-15.1) 10/06/22 03:25 Plt Count 357 10^3/cmm (130-400) 10/06/22 03:25 MPV 9.0 fL (7.4-10.4) 10/06/22 03:25 Neut % (Auto) 62.8 % 10/06/22 03:25 Lymph % (Auto) 28.9 % 10/06/22 03:25 [place] % (Auto) 5.8 % 10/06/22 03:25 Eos % (Auto) 1.5 % 10/06/22 03:25 Baso % (Auto) 0.6 % 10/06/22 03:25 Neut # (Auto) 4.91 10^3/uL (1.8-7.7) 10/06/22 03:25 Lymph # (Auto) 2.3 10^3/uL (0.8-4.8) 10/06/22 03:25 [place] # (Auto) 0.5 10^3/uL (0.2-0.9) 10/06/22 03:25 Eos # (Auto) 0.1 10^3/uL (0.0-0.8) 10/06/22 03:25 Baso # (Auto) 0.1 10^3/uL (0.0-0.1) 10/06/22 03:25 Nucleated RBC % (auto) 0 % 10/06/22 03:25 Nucleated RBCs # 0.0 /100WBC 10/06/22 03:25 Sodium 138 mmol/L (136-145) 10/06/22 03:25 Potassium 4.0 mmol/L (3.5-5.1) 10/06/22 03:25 Chloride 99 mmol/L (98-107) 10/06/22 03:25 Carbon Dioxide 28 mmol/L (22-29) 10/06/22 03:25 Anion Gap 15.0 (5-19) 10/06/22 03:25 BUN 15 mg/dL (6-20) 10/06/22 03:25 Creatinine 1.0 mg/dL (0.7-1.2) 10/06/22 03:25 GFR Calculation 86.1 mL/min (90-130) L 10/06/22 03:25 Glucose 98 mg/dL (65-115) 10/06/22 03:25 Calculated Osmolality 287 mOsm/kg (285-295) 10/06/22 03:25 Calcium 9.2 mg/dL (8.5-10.5) 10/06/22 03:25 Total Bilirubin 0.3 mg/dL (0.15-1.2) 10/06/22 03:25 AST 18 U/L (0-40) 10/06/22 03:25 ALT 22 U/L (0-41) 10/06/22 03:25 Alkaline Phosphatase 113 U/L (40-130) 10/06/22 03:25 C-Reactive Protein 3.0 mg/L (0.0-4.9) 10/06/22 03:25 Total Protein 7.6 g/dL (6.6-8.7) 10/06/22 03:25 Albumin 4.8 g/dL (3.5-5.2) 10/06/22 03:25 Globulin 2.8 g/dL (1.3-4.6) 10/06/22 03:25 Lipase 52 U/L (13-60) 10/06/22 03:25 Urine Color Yellow (Yellow) 10/06/22 03:15 Urine Appearance Clear (CLEAR) 10/06/22 03:15 Urine pH 5 (5-7) 10/06/22 03:15 Ur Specific [place] 1.025 (1.005-1.030) 10/06/22 03:15 Urine Protein Neg (Negative) 10/06/22 03:15 Urine Glucose (UA) Norm (Normal) 10/06/22 03:15 Urine Ketones 1+ (Negative) H 10/06/22 03:15 Urine Blood Neg (Negative) 10/06/22 03:15 Urine Nitrate Negative (Negative) 10/06/22 03:15 Urine Bilirubin Neg (Negative) 10/06/22 03:15 Urine Urobilinogen Neg mg/dL (Negative) 10/06/22 03:15 Ur Leukocyte Esterase 1+ (Negative) H 10/06/22 03:15 Urine RBC 0-4 /hpf (0-2) H 10/06/22 03:15 Urine WBC 0-4 /hpf (0-5) H 10/06/22 03:15 Ur Squamous Epith Cells 0-4 /hpf (0-5) H 10/06/22 03:15 Amorphous Sediment Not Reportable 10/06/22 03:15 Urine Bacteria Trace /hpf (NONE) 10/06/22 03:15 Urine Mucus Trace /hpf 10/06/22 03:15 Discharge Plan Discharge Patient Disposition: Home Clinical Impression: Abdominal pain Condition: Stable Prescriptions: New ketorolac 10 mg tablet 10 mg PO TID PRN (Reason: pain) Qty: 10 0RF ondansetron 4 mg film 4 mg PO DAILY PRN (Reason: nausea and vomiting) Qty: 10 0RF No Action cyclobenzaprine 10 mg tablet 10 mg PO TID PRN (Reason: Pain) gabapentin 300 mg capsule 300 mg PO DAILY Qty: 21 0RF Rx Instructions: Take 1 tab @ pm for 7 days. Then BID for 7 days. gabapentin 300 mg capsule 300 mg PO TID 30 Days Qty: 90 3RF naproxen sodium 220 mg Capsule 220 mg PO BID PRN (Reason: Pain) ferrous sulfate 27 mg iron Tablet 27 mg PO DAILY Fish Oil 1,200 (144-216) mg Capsule 1 cap PO DAILY Discharge Orders: Discharge ED (Routine); Ordered 10/06/22 Ordered By: Toni Chacko Referrals: Stef Sandhu DO [Primary Care Provider] - 1-3 days Patient Instructions: Abdominal Pain (ED), Pain Management Activity Restrictions/Additional Instructions: Return for worsening pain despite treatment, vomiting liquids or medications despite treatment, fever greater than 100, or any other concerning symptoms. Follow-up with your doctor this week. Coding Level of Care Code ED Administrative Office Specialist for Mayte Rausch
== END 2022-10-06 06:02 | disposition home or self-care (01) ==
PROVIDERS: Emergency Provider Emergency Medicine; PCP Emergency Medicine Emergency Medical Services
DX: R10.32 Left lower quadrant pain (principal); Z87.891 Personal history of nicotine dependence
CPT/HCPCS: 80053; 81001; 83690; 85025; 86140; 96361; 96374; 96375; 96376; 99284; J1885; J2270; J2405; J7030

== ENCOUNTER 2022-12-03 08:12 | Outpatient (CLI) | payer OTHER, SELFPAY ==
--- NOTE | 2022-12-03 08:25 | US_ITS ---
WS: [id number] ABDOMINAL ULTRASOUND LIMITED REASON FOR EXAM: GALLBLADDER US FLIP TO [facility] COMPARISON: None available. ORDER DATE: 12/03/2022 8:31 AM TECHNIQUE: Grayscale and Doppler ultrasound examination of the abdomen. FINDINGS: Pancreas: Unremarkable as visualized Abdominal aorta and IVC: 16 mm diameter mid abdominal aorta no evidence of focal abnormality IVC unre markable. Liver: Liver measures 16.9 cm in length. No focal abnormalities or bile duct dilatation Gallbladder: No evidence of cholelithiasis Gallbladder wall thickness measures 0.2 mm. Common bile du ct 2.7 mm in width Right kidney: Right kidney measures 11.6 cm x 4.7 cm x 4.9 cm. Right kidney cortex measures 1.1 cm There is normal vascular flow demonstrated within the portal vein and right kidney. US/US abdomen limited [id number] IMPRESSION: No focal abnormalities.
--- NOTE | 2022-12-03 08:30 | CTR_ITS ---
PROCEDURE INFORMATION: Exam: CT Abdomen And Pelvis With Contrast Exam date and time: 12/03/2022 10:17 AM Age: 32 years old Clinical indication: Bloating and constipation and nausea; Prior surgery; Surgery type: Back; Patient HX: Bloating, nausea and constipation x 1 month; Additional info: Nausea/constipation TECHNIQUE: Imaging protocol: Computed tomography of the abdomen and pelvis with contrast. Radiation optimization: All CT scans at this facility use at least one of these dose optimization techniques: automated exposure control; mA and/or kV adjustment per patient size (includes targeted exams where dose is matched to clinical indication); or iterative reconstruction. Contrast material: OMNI 350; Contrast volume: 95 ml; Contrast route: INTRAVENOUS (IV); REPORTING DATA: Count of CT and Cardiac NM exams in prior 12 months: This patient has received 0 known CTs and 0 known cardiac nuclear medicine studies in the 12 months prior to the current study. COMPARISON: CT abdomen pelvis w con* [id number] 11/18/2017 10:46 AM RADIATION DOSE METRICS: Total DLP (mGy-cm): 558.53 FINDINGS: Liver: Normal. No mass. Gallbladder and bile ducts: Normal. No calcified stones. No ductal dilation. Pancreas: Normal. No ductal dilation. Spleen: Normal. No splenomegaly. Adrenal glands: Normal. No mass. Kidneys and ureters: Normal. No hydronephrosis. Stomach and bowel: Incomplete gastric distention, limiting evaluation for gastric wall thickening. Moderate stool volume in the colon. A few sigmoid colon diverticula, without CT findings of diverticulitis. No bowel obstruction. Appendix: No evidence of appendicitis. Intraperitoneal space: Unremarkable. No free air. No significant fluid collection. Vasculature: Unremarkable. No abdominal aortic aneurysm. Lymph nodes: Unremarkable. No enlarged lymph nodes. Urinary bladder: Unremarkable as visualized. Reproductive: Prostate gland measures 4 x 3 cm on axial exam and appears unremarkable in density. Bones/joints: Unremarkable. No acute fracture. Soft tissues: Unremarkable. CT/CT abdomen pelvis w con* [id number] IMPRESSION: 1. Incomplete gastric distention, limiting evaluation for gastric wall thickening. No other significant abnormality. 2. A few sigmoid colon diverticula, without CT findings of diverticulitis. 3. Moderate stool volume in the colon. 4. No acute findings, otherwise.
[2022-12-03] MEDS: iohexol 350 mg/mL 500 mL Btl (per mL) PO (10:19)
[2022-12-03] MEDS: iohexol 350 mg/mL 500 mL Btl (per mL) IV (10:21)
== END 2022-12-03 08:13 | disposition home or self-care (01) ==
LOC: RAD 08:14
PROVIDERS: PCP Emergency Medicine Emergency Medical Services; Visit Provider Emergency Medicine Emergency Medical Services
DX: R11.0 Nausea (principal); K59.00 Constipation, unspecified; K57.30 Diverticulosis of large intestine without perforation or abscess without bleeding
CPT/HCPCS: 74177; 76705; Q9967

== ENCOUNTER → 2022-12-15 14:02 | Outpatient (BNVA) | payer OTHER, SELFPAY | PROVIDERS: PCP Emergency Medicine Emergency Medical Services; Visit Provider Specialist | DX: G43.019 Migraine without aura, intractable, without status migrainosus (principal); M79.2 Neuralgia and neuritis, unspecified; F43.10 Post-traumatic stress disorder, unspecified | CPT/HCPCS: 99214 ==

== ENCOUNTER 2023-04-22 09:41 | Emergency (ER) | payer OTHER, SELFPAY ==
[2023-04-22 10:10] VITALS: BMI 27.3
[2023-04-22 10:12] VITALS: BP 150/86; PULSE 100; RESP 16; TEMP 36.8; O2SAT 100
--- NOTE | 2023-04-22 10:40 | US_ITS ---
WS: [id number] SCROTAL ULTRASOUND EXAMINATION CLINICAL INFORMATION: L testicular pain COMPARISON: None. FINDINGS: TESTES Normal in size and echotexture, without focal lesion. Color Doppler: Normal color Doppler flow pattern. Right testes size: 5.1 cm x 3.6 cm x 2.8 cm. Left testes size: 4.9 cm x 3.4 cm x 2.9 cm. EPIDIDYMIDES Normal in size and echotexture, without focal lesion. Color Doppler: Normal color Doppler flow pattern. Right epididymis size: 0.7 cm x 1.3 cm x 1.2 cm. Left epididymis size: 0.7 cm x 0.9 cm x 0.7 cm. HYDROCELE None. VARICOCELE None. OTHER FINDINGS None. IMPRESSION: Testicles are normal in appearance with normal echogenicity. Normal epididymis. No inguinal hernia. Few slightly prominent varicosities left inguinal canal slightly more prominent compared to the right nonspecific but most likely incidental. No other suspicious findings.
--- NOTE | 2023-04-22 10:40 | ED_ITS ---
HPI - Male Genitourinary General: Chief complaint: Urogenital-Male Stated complaint: groin pain / back pain Time Seen by Provider: 04/22/23 09:49 Source: patient Mode of arrival: ambulatory Limitations: no limitations History of Present Illness: Patient is a 33-year-old male with history of PTSD who presents to the emergency department complaining of left testicle pain onset 1 day. Yesterday, he states he was moving a toilet when he noticed a sharp pain and felt a pop upon bending over. Since, he notes sharp stabbing left testicle pain with radiation into the left inguinal region. The pain has been constant and states that it is worsened with movement and palpation. He says he even feels the pain at rest, and notes some suprapubic pressure. He has no associated symptoms, though he notes that he has had multiple episodes of dark-colored urination, despite adequate fluid intake. He denies noticing any testicular mass or swelling. Denies nausea, vomiting, penile discharge, dysuria, hematuria, or any other symptoms. He states that he has only been sexually active with his . MD Complaint: testicle pain Onset (ago): day(s) Duration: constant Location: left testicle Radiation: left inguinal region Severity: moderate Quality: sharp and stabbing Relieving factors: none Exacerbating factors: palpation and movement Context: lifting Associated symptoms: Reports no associated symptoms; Deny dysuria, hematuria, nausea or vomiting Related Data: Sexually active: Yes Review of Systems Const: Denies: fever(s) or chills Eyes: Denies: change in vision or blurry vision Card: Denies: chest pain, palpitations, irregular heart rhythm, lightheadedness, syncope or dyspnea on exertion Resp: Denies: dyspnea, productive cough or pain on inspiration GI: Denies: abdominal pain, nausea, vomiting, heartburn or diarrhea : Reports: testicular pain (Left testicle); Denies: flank pain, difficulty urinating, dysuria, hematuria, penile discharge, testicular mass or scrotal swelling Musc: Denies: neck pain, back pain or joint pain Skin/Breast: Denies: rash PFS ED PFSH: Medical History PTSD (post-traumatic stress disorder) Social History (Reviewed 08/09/23 @ 10:49 by ION Doan Smoking and tobacco status: never smoked Quit status (tobacco): has quit using tobacco Alcohol intake: current Alcohol intake frequency: holidays/special occasions only Substance/Drug Use: never Current gender identity: Male Physical Exam Const: COMMON NORMALS: no acute distress, patient oriented x3, alert and well nourished GENERAL APPEARANCE: cooperative ORIENTATION/CONSCIOUSNESS: Yes awake, Yes oriented to person, Yes oriented to place and Yes oriented to time HENMT: COMMON NORMALS: normocephalic and atraumatic HEAD & SCALP: normoceph alic and atraumatic Neck/C-Spine: COMMON NORMALS: full ROM, no lymphadenopathy and supple Chest: COMMONS NORMALS: normal inspection of the chest Resp: COMMON NORMALS: normal respiratory effort and clear to auscultation bilaterally AUSCULTATION: clear to auscultation bilaterally Cardio: COMMON NORMALS: regular rate and regular rhythm RATE: regular rate RHYTHM: regular rhythm GI: COMMON NORMALS: Normal to inspection, nondistended, normoactive bowel sounds present, Soft to palpation, No hepatosplenomegaly present and no masses PALPATION: Yes Soft to palpation, Yes Tenderness to palpation present (GI) (Mild suprapubic tenderness to palpation) and Yes No hepatosplenomegaly present : COMMON NORMALS: Yes no CVA tenderness BLADDER/KIDNEY EXAM: Yes no CVA tenderness SCROTUM: Yes testes descended bilaterally, Yes Cremasteric reflex present, No inguinal hernia (No mass on examination), No erythematous, No ecch ymosis, No edematous, No scrotal swelling, No Scrotal lesions present and No scrotal mass TESTES: Yes testicular lie normal, No testicular swelling, Yes testicular tenderness Testicular tenderness laterality: left, No testicular mass and No epididymal tenderness OTHER: Negative Prehn sign Back/Pelvis: COMMON NORMALS: no CVA tenderness and thoracic and lumbar spine normal to inspection Extremity: COMMON NORMALS: normal to inspection GENERAL: Yes normal exam except as noted Neuro: COMMON NORMALS: patient oriented x3 SENSORIUM/ORIENTATION: Yes alert, Yes oriented to person, Yes oriented to place and Yes oriented to time Skin: COMMON NORMALS: no rashes or lesions noted GENERAL SKIN EXAM: no rashes or lesions noted Course Vital Signs: Vital signs: Vital Signs Temperature 98.2 F 04/22/23 10:12 Pulse Rate 100 04/22/23 10:12 Respiratory Rate 16 04/22/23 12:00 Blood Pressure 150/86 04/22/23 10:12 Pulse Oximetry 100 04/22/23 10:12 Oxygen Delivery Me thod Room Air 04/22/23 10:12 MDM - Male Medical Decision Making This patient was seen and evaluated in the emergency department today for acute left testicle pain onset 1 day after lifting. No hernia appreciated on exam. Testicle/scrotum without erythema, warmth, or swelling. Labs today are within normal ranges. His urinalysis is negative for any signs of infection. Testicular ultrasound is negative for any signs of torsion, epididymitis, or other obvious explanations for his pain. There remains no concern for STDs. Working diagnosis at this time is acute left testicle pain. Patient will be informed to treat supportively with scrotal elevation, [id number] anti- inflammatories and Tylenol, as well as ice as needed. If his pain persists, he will follow-up with his primary care provider at the [facility]. Lab Data 04/22/23 11:46 04/22/23 11:46 Laboratory Results WBC 5.4 10^3/uL (4.0-10.0) 04/22/23 11:46 RBC 5.01 10^6/uL (4.1-5.3) 04/22/23 11:46 Hgb 15.0 g/dL (11.7-16.6) 04/22/23 11:46 Hct 44.7 % (42.0-52.0) 04/22/23 11:46 MCV 89.2 fl (80-94) 04/22/23 11:46 MCH 29.9 pg (28.0-34.0) 04/22/23 11:46 MCHC 33.6 g/dL (30.0-36.0) 04/22/23 11:46 RDW 12.3 % (12.1-15.1) 04/22/23 11:46 Plt Count 274 10^3/cmm (130-400) 04/22/23 11:46 MPV 8.8 fL (7.4-10.4) 04/22/23 11:46 Neut % (Auto) 58.2 % 04/22/23 11:46 Lymph % (Auto) 35.0 % 04/22/23 11:46 [place] % (Auto) 5.2 % 04/22/23 11:46 Eos % (Auto) 0.7 % 04/22/23 11:46 Baso % (Auto) 0.7 % 04/22/23 11:46 Neut # (Auto) 3.11 10^3/uL (1.8-7.7) 04/22/23 11:46 Lymph # (Auto) 1.9 10^3/uL (0.8-4.8) 04/22/23 11:46 [place] # (Auto) 0.3 10^3/uL (0.2-0.9) 04/22/23 11:46 Eos # (Auto) 0.0 10^3/uL (0.0-0.8) 04/22/23 11:46 Baso # (Auto) 0.0 10^3/uL (0.0-0.1) 04/22/23 11:46 Nucleated RBC % (auto) 0 % 04/22/23 11:46 Nucleated RBCs # 0.0 /100WBC 04/22/23 11:46 Sodium 139 mmol/L (136-145) 04/22/23 11:46 Potassium 4.3 mmol/L (3.5-5.1) 04/22/23 11:46 Chloride 103 mmol/L (98-107) 04/22/23 11:46 Carbon Dioxide 26 mmol/L (22-29) 04/22/23 11:46 Anion Gap 14.3 (5-19) 04/22/23 11:46 BUN 10 mg/dL (6-20) 04/22/23 11:46 Creatinine 1.2 mg/dL (0.7-1.2) 04/22/23 11:46 GFR Calculation 69.3 mL/min (90-130) L 04/22/23 11:46 Glucose 95 mg/dL (65-115) 04/22/23 11:46 Calculated Osmolality 287 mOsm/kg (285-295) 04/22/23 11:46 Calcium 9.0 mg/dL (8.5-10.5) 04/22/23 11:46 Total Bilirubin 0.4 mg/dL (0.15-1.2) 04/22/23 11:46 AST 15 U/L (0-40) 04/22/23 11:46 ALT 15 U/L (0-41) 04/22/23 11:46 Alkaline Phosphatase 86 U/L (40-130) 04/22/23 11:46 Total Protein 6.7 g/dL (6.6-8.7) 04/22/23 11:46 Albumin 4.3 g/dL (3.5-5.2) 04/22/23 11:46 Globulin 2.4 g/dL (1.3-4.6) 04/22/23 11:46 Urine Color Light yellow (Yellow) 04/22/23 10:46 Urine Appearance Clear (CLEAR) 04/22/23 10:46 Urine pH 7 (5-7) 04/22/23 10:46 Ur Specific [place] 1.010 (1.005-1.030) 04/22/23 10:46 Urine Protein Neg (Negative) 04/22/23 10:46 Urine Glucose (UA) Norm (Normal) 04/22/23 10:46 Urine Ketones Negative (Negative) 04/22/23 10:46 Urine Blood Neg (Negative) 04/22/23 10:46 Urine Nitrate Negative (Negative) 04/22/23 10:46 Urine Bilirubin Neg (Negative) 04/22/23 10:46 Urine Urobilinogen Norm mg/dL (Negative) 04/22/23 10:46 Ur Leukocyte Esterase Negative (Negative) 04/22/23 10:46 Discharge Plan Discharge Patient Disposition: Home Clinical Impression: Left testicular pain Condition: Stable Prescriptions: No Action cyclobenzaprine 10 mg tablet 10 mg PO TID PRN (Reason: Pain) gabapentin 400 mg capsule 400 mg PO TID Qty: 180 3RF ferrous sulfate 27 mg iron Tablet 27 mg PO DAILY omega [id number]-fish oil [Fish Oil] 1,200 (144-216) mg Capsule 1 cap PO BID ondansetron 4 mg film 4 mg PO DAILY PRN (Reason: nausea and vomiting) Qty: 10 0RF calcium polycarbophil 625 mg Tablet 1,250 mg PO DAILY Colace 100 mg Capsule 100 mg PO TID PRN (Reason: Constipation) Naprosyn 500 mg Tablet 500 mg PO BID PRN (Reason: Pain) Vitamin D3 50 mcg (2,000 unit) Capsule 100 mcg PO DAILY Discharge Orders: Discharge ED (Routine); Ordered 04/22/23 Ordered By: Sheryl Bryant Referrals: Stef Sandhu, [Primary Care Provider] - Activity Restrictions/Additional Instructions: As we discussed I recommend using supportive tight fitting underwear for scrotal support. You may apply ice for 15 to 20 minutes every 1-2 hours. Make sure you apply a barrier between skin and ice pack. You may take over the counter anti-inflammatories. Avoid lifting more than 20 pounds. Please follow-up with your primary care provider in 1 to 2 weeks if symptoms do not seem to be improving. Coding Level of Care Code ED Acquisition Cost Estimator for Mayte Rausch
--- NOTE | 2023-04-22 10:59 | PC.PHAR ---
pt is getting ultrasound
[2023-04-22 11:00] VITALS: RESP 16
[2023-04-22 11:01] LABS: Add Urine Microscopic? NO; Charge for UA Resulting for Rev
[2023-04-22 11:12] LABS: Bilirubin Urine Neg (Negative); Blood Urine Neg (Negative); Glucose Urine UA Norm (Normal); Ketones Urine Negative (Negative); Leukocyte Esterase Urine Negative (Negative); Nitrate Urine Negative (Negative); Protein Urine Neg (Negative); Urine Appearance Clear (CLEAR); Urine Color Light yellow (Yellow); Urobilinogen Urine Norm (Negative); pH Urine 7 (5-7)
[2023-04-22 11:53] LABS: Basophils % 0.7 %; Eosinophils % 0.7 %; Hematocrit 44.7 % (42.0-52.0); Lymphocytes # 1.9 10^3/uL (0.8-4.8); Mean Corpuscular HGB Conc 33.6 g/dL (30.0-36.0); Mean Corpuscular Hemoglobin 29.9 pg (28.0-34.0); Mean Corpuscular Volume 89.2 fl (80-94); Mean Platelet Volume 8.8 fL (7.4-10.4); Monocytes # 0.3 10^3/uL (0.2-0.9); Monocytes % 5.2 %; Neutrophils # 3.11 10^3/uL (1.8-7.7); Neutrophils % 58.2 %; Nucleated Red Blood Cells % 0 %; Platelet Count 274 10^3/cmm (130-400); Red Blood Count 5.01 10^6/uL (4.1-5.3); Red Cell Distribution Width 12.3 % (12.1-15.1); White Blood Count 5.4 10^3/uL (4.0-10.0)
[2023-04-22 12:00] VITALS: RESP 16
[2023-04-22 12:22] LABS: Alanine Aminotransferase 15 U/L (0-41); Albumin Level 4.3 g/dL (3.5-5.2); Alkaline Phosphatase 86 U/L (40-130); Anion Gap 14.3 (5-19); Aspartate Amino Transferase 15 U/L (0-40); Blood Urea Nitrogen 10 mg/dL (6-20); Carbon Dioxide 26 mmol/L (22-29); Chloride 103 mmol/L (98-107); Globulin 2.4 g/dL (1.3-4.6); Glomerular Filtration Rate 69.3 mL/min (90-130); Glucose 95 mg/dL (65-115); Osmolality Calculated 287 mOsm/kg (285-295); Potassium 4.3 mmol/L (3.5-5.1); Sodium 139 mmol/L (136-145); Total Bilirubin 0.4 mg/dL (0.15-1.2); Total Protein 6.7 g/dL (6.6-8.7)
[2023-04-22 13:26] VITALS: RESP 18
== END 2023-04-22 13:28 | disposition home or self-care (01) ==
PROVIDERS: Emergency Provider Physician Assistant; PCP Emergency Medicine Emergency Medical Services
DX: N50.812 Left testicular pain (principal); Z79.899 Other long term (current) drug therapy
CPT/HCPCS: 36415; 76870; 80053; 81003; 85025; 99284

== ENCOUNTER → 2023-05-19 10:34 | Outpatient (BNVA) | payer OTHER, SELFPAY | PROVIDERS: PCP Emergency Medicine Emergency Medical Services; Visit Provider Specialist | DX: G43.019 Migraine without aura, intractable, without status migrainosus (principal); M79.2 Neuralgia and neuritis, unspecified; F43.10 Post-traumatic stress disorder, unspecified | CPT/HCPCS: 99214 ==

== ENCOUNTER 2024-02-10 08:38 | Outpatient (CLI) | payer OTHER, SELFPAY ==
--- NOTE | 2024-02-10 08:44 | MR_ITS ---
WS: [id number] MRI LUMBAR SPINE NONCONTRAST HISTORY: LOW BACK PAIN COMPARISON: 11/19/2020 TECHNIQUE: Sagittal and axial multisequence imaging is submitted. 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 Cerebellar tonsils are extending approximately 7 mm below the foramen magnum. Normal lumbar alignment with no compression fractures or marrow edema. Disc spaces are slightly desiccated at L4-5 and L5-S1. Similar to the prior study. No acute fractures or marrow edema. Conus terminates normally at L1-2 disc level. L1-L2: Normal. L2-L3: Normal. L3-L4: Mild annular disc bulging. Very slight encroachment upon the LEFT subarticular recess. Disc co ntacts the traversing LEFT L5 nerve root. Mild ligamentum flavum and facet arthritis. Very mild LEFT foraminal and subarticular recess stenosis. L4-L5: Osteophytic ridging with moderate annular disc bulging. Central disc protrusion extends into t he subarticular recesses. Disc contacts the traversing L5 nerve roots. The more predominant LEFT para central disc protrusion seen on the prior study has decreased in size. There is less displacement of the LEFT L5 nerve root. Mild central with bilateral subarticular recess and foraminal stenosis. Sligh tly greater stenosis LEFT foramen. L5-S1: Mild annular disc bulging with a LEFT paracentral disc protrusion and annular fissures. Disc p rotrusion has slightly decreased since the prior study. There is continued mild encroachment upon the S1 nerve roots, LEFT greater than RIGHT. Facet joint arthritis. Mild RIGHT and moderate LEFT foramin al stenosis. MR/MR lumbar spine wo con* [id number] IMPRESSION: 1. No change in the Chiari I malformation. 2. L4-5: LEFT paracentral disc protrusion extending into the subarticular rece ss as described on the prior study is decreased in size. There is still disc co ntact on the traversing L5 nerve roots but less displacement of the LEFT L5 ner ve root. Mild central, bilateral subarticular recess and foraminal stenosis. 3. L5-S1: Small LEFT paracentral disc protrusion and annular fissure is slight ly decreased since the prior study. Continued encroachment upon the S1 nerve ro ots, LEFT greater than RIGHT. Mild RIGHT and moderate LEFT foraminal stenosis. 4. L3-4: Facet joint arthritis with mild LEFT foraminal subarticular recess en croachment. Disc contacts the traversing L5 nerve root without displacement.
== END 2024-02-10 08:39 | disposition home or self-care (01) ==
LOC: RAD 08:38
PROVIDERS: PCP Emergency Medicine Emergency Medical Services; Visit Provider Emergency Medicine Emergency Medical Services
DX: M51.26 Other intervertebral disc displacement, lumbar region (principal); M48.061 Spinal stenosis, lumbar region without neurogenic claudication
CPT/HCPCS: 72148

== ENCOUNTER → 2024-02-25 10:14 | Outpatient (BNVA) | payer OTHER, SELFPAY | PROVIDERS: PCP Emergency Medicine Emergency Medical Services; Visit Provider Orthopaedic Surgery | DX: M54.41 Lumbago with sciatica, right side (principal); M54.42 Lumbago with sciatica, left side; G89.29 Other chronic pain | CPT/HCPCS: 72110; 99214 ==

== ENCOUNTER 2024-03-31 09:07 | Outpatient (RCR) | payer OTHER, SELFPAY | END 2024-04-13 23:59 | disposition home or self-care (01) | LOC: SPT 09:07 | PROVIDERS: PCP Family Medicine; Visit Provider Orthopaedic Surgery | DX: M54.9 Dorsalgia, unspecified (principal); G89.29 Other chronic pain | CPT/HCPCS: 97110; 97161 ==

== ENCOUNTER 2024-04-14 06:00 | Outpatient (RCR) | payer OTHER, SELFPAY | END 2024-05-14 23:59 | disposition home or self-care (01) | LOC: SPT 06:00 | PROVIDERS: PCP Family Medicine; Visit Provider Orthopaedic Surgery | DX: M54.9 Dorsalgia, unspecified (principal); G89.29 Other chronic pain | CPT/HCPCS: 97110 ==

== ENCOUNTER 2024-05-15 06:00 | Outpatient (RCR) | payer OTHER, SELFPAY | END 2024-06-13 23:59 | disposition home or self-care (01) | LOC: SPT 06:00 | PROVIDERS: PCP Family Medicine; Visit Provider Orthopaedic Surgery | DX: M54.9 Dorsalgia, unspecified (principal); G89.29 Other chronic pain | CPT/HCPCS: 97110 ==

== ENCOUNTER → 2024-05-26 13:08 | Outpatient (BNVA) | payer OTHER, SELFPAY | PROVIDERS: PCP Family Medicine; Visit Provider Orthopaedic Surgery | DX: M48.062 Spinal stenosis, lumbar region with neurogenic claudication (principal) | CPT/HCPCS: 99213 ==

== ENCOUNTER → 2024-08-25 08:49 | Outpatient (BNVA) | payer OTHER, SELFPAY | PROVIDERS: PCP Family Medicine; Visit Provider Orthopaedic Surgery | DX: M48.062 Spinal stenosis, lumbar region with neurogenic claudication | CPT/HCPCS: 99213 ==

== ENCOUNTER → 2024-10-25 12:52 | Outpatient (BNVA) | payer OTHER, SELFPAY | PROVIDERS: PCP Family Medicine; Referring Provider Nurse Practitioner Family; Visit Provider Nurse Practitioner Family | DX: M48.062 Spinal stenosis, lumbar region with neurogenic claudication (principal); M47.816 Spondylosis without myelopathy or radiculopathy, lumbar region; Z87.891 Personal history of nicotine dependence | CPT/HCPCS: 99214 ==

== ENCOUNTER → 2024-11-03 08:54 | Outpatient (BNVA) | payer OTHER, SELFPAY | PROVIDERS: PCP Family Medicine; Visit Provider Nurse Practitioner Family | DX: M79.18 Myalgia, other site (principal); M47.816 Spondylosis without myelopathy or radiculopathy, lumbar region; M48.062 Spinal stenosis, lumbar region with neurogenic claudication; Z87.891 Personal history of nicotine dependence | CPT/HCPCS: 20553; 99214 ==

== ENCOUNTER → 2024-11-09 08:40 | Outpatient (BNVA) | payer OTHER, SELFPAY | PROVIDERS: PCP Family Medicine; Visit Provider Anesthesiology Pain Medicine | DX: M47.816 Spondylosis without myelopathy or radiculopathy, lumbar region (principal); M48.062 Spinal stenosis, lumbar region with neurogenic claudication; M54.9 Dorsalgia, unspecified | CPT/HCPCS: 64493; 64494; 64495; J3490 ==

== ENCOUNTER → 2024-11-16 08:28 | Outpatient (BNVA) | payer OTHER, SELFPAY | PROVIDERS: PCP Family Medicine; Visit Provider Nurse Practitioner Family | DX: M48.062 Spinal stenosis, lumbar region with neurogenic claudication (principal); M47.816 Spondylosis without myelopathy or radiculopathy, lumbar region; Z87.891 Personal history of nicotine dependence | CPT/HCPCS: 99213 ==

== ENCOUNTER → 2024-11-23 14:19 | Outpatient (BNVA) | payer OTHER, SELFPAY | PROVIDERS: PCP Family Medicine; Visit Provider Anesthesiology Pain Medicine | DX: M47.816 Spondylosis without myelopathy or radiculopathy, lumbar region (principal); M48.062 Spinal stenosis, lumbar region with neurogenic claudication | CPT/HCPCS: 64635; 64636; J1010; J9999 ==

== ENCOUNTER → 2024-12-01 07:55 | Outpatient (BNVA) | payer OTHER, SELFPAY | PROVIDERS: PCP Family Medicine; Visit Provider Orthopaedic Surgery | DX: Z09 Encounter for follow-up examination after completed treatment for conditions other than malignant neoplasm (principal) | CPT/HCPCS: 99213 ==

== ENCOUNTER → 2024-12-12 15:09 | Outpatient (BNVA) | payer OTHER, SELFPAY | PROVIDERS: PCP Family Medicine; Visit Provider Anesthesiology Pain Medicine | DX: M48.062 Spinal stenosis, lumbar region with neurogenic claudication (principal) | CPT/HCPCS: 99213 ==

== ENCOUNTER → 2025-01-12 08:23 | Outpatient (BNVA) | payer OTHER, SELFPAY | PROVIDERS: PCP Family Medicine; Visit Provider Orthopaedic Surgery | DX: M47.816 Spondylosis without myelopathy or radiculopathy, lumbar region (principal) | CPT/HCPCS: 99213 ==

== ENCOUNTER → 2025-02-13 13:15 | Outpatient (BNVA) | payer OTHER, SELFPAY | PROVIDERS: PCP Family Medicine; Visit Provider Anesthesiology Pain Medicine | DX: M48.062 Spinal stenosis, lumbar region with neurogenic claudication (principal) | CPT/HCPCS: 99214 ==